=== PATIENT | male | born 1975 | race Two or more races ===

== ENCOUNTER 2017-06-10 14:56 | Inpatient (IN) | payer MEDICAID ==
[~2017-06-10] VITALS: Ht 185.4 cm; Wt 133.8 kg
[2017-06-10] MEDS ORDERED: NKM (15:06)
[2017-06-10] MEDS ORDERED: Acetaminophen 500mg (ES) tab ORAL ONE (15:30)
[2017-06-10] MEDS ORDERED: Ketorolac 30mg Inj IV ONE (15:30)
--- NOTE | 2017-06-10 15:33 | Emergency Room Report ---
History of Present Illness General Chief Complaint: Dyspnea/Respdistress Source: Patient Present Illness HPI Patient is a homeless man who presents emergency department today complaining of chest discomfort. Patient states that he develop acute onset of left-sided chest pain worse with deep inspiration since yesterday. Patient was noted to have a fever at triage. Patient states that he was also recently treated for cellulitis of his lower extremities but things do not seem to be improving. He complains of dependent edema of his legs. He sleeps in his car. He denies any other complaints. Denies any abdominal pain nausea vomiting diarrhea or chills. Symptoms noted to be severe.No other modifying factors. No other associated signs and symptoms. No other complaints were noted. Allergies: Coded Allergies: No Known Allergies (Unverified , 06/10/17) Patient History Past Medical History: other - depression Past Surgical History: none Pertinent Family History: none Social History: Denies: alcohol use, drug use, smoking Reviewed Nursing Documentation: PMH: Agreed, PSxH: Agreed Nursing Documentation-PMH History Of Psychiatric Problem: Yes - depression Review of Systems All Other Systems: negative except mentioned in HPI Physical Exam Vital Signs Date Time Temp Pulse Resp B/P Pulse Ox O2 Delivery O2 Flow Rate FiO2 06/10/17 15:00 100.9 136 20 147/90 94 Room Air Sp02 EP Interpretation: reviewed, abnormal - interpreted to be low by me General Appearance: alert, moderate distress Head: atraumatic Eyes: bilateral eye normal inspection ENT: normal ENT inspection, hearing grossly normal, normal voice Neck: normal inspection, full range of motion, supple, no bony tend Respiratory: no retraction, decreased breath sounds, crackles - left-sided Cardiovascular #1: regular rate, rhythm, no edema, other - tender left side palpation Gastrointestinal: normal inspection, normal bowel sounds, non tender, soft, no guarding, no hernia Genitourinary: no CVA tenderness Musculoskeletal: normal inspection, back normal, normal range of motion Neurologic: normal inspection, alert, responsive, speech normal Psychiatric: normal inspection, judgement/insight normal, depressed affect, anxious Skin: normal inspection, normal color, no rash Procedures Critical Care Time Critical Care Time Patient had a critical medical condition which untreated could potentially result in life or limb threatening injury. Total critical care time excluding procedures was approximately 45 minutes. Medical Decision Making Diagnostic Impression: Primary Impression: Pneumonia Additional Impressions: Hypoxia Tachycardia ER Course Patient presents emergency department today complaining shortness of breath and tachycardia. Differential diagnoses include acute pneumonia, acute pulmonary embolism, acute electrolyte abnormality, asthma just name a few. Given the severity of the patient's presentation I felt this is a highly complex patient. This patient required extensive workup. Patient laboratory workup shows an elevated white blood cell count. Patient's chest x-ray shows evidence of infiltrate consistent with pneumonia. Patient's CT chest not showing evidence of pulmonary embolism. However given patient's presentation for the patient require admission to the hospital. Case was discussed with admitting physician. Patient will be admitted to telemetry because patient's tachycardic. Labs Test 06/10/17 15:34 06/10/17 15:45 White Blood Count 13.1 K/UL (4.8-10.8) Red Blood Count 5.08 M/UL (4.70-6.10) Hemoglobin 15.4 G/DL (14.2-18.0) Hematocrit 44.3 % (42.0-52.0) Mean Corpuscular Volume 87 FL (80-99) Mean Corpuscular Hemoglobin 30.2 PG (27.0-31.0) Mean Corpuscular Hemoglobin Concent 34.7 G/DL (32.0-36.0) Red Cell Distribution Width 12.5 % (11.6-14.8) Platelet Count 319 K/UL (150-450) Mean Platelet Volume 7.1 FL (6.5-10.1) Neutrophils (%) (Auto) 75.3 % (45.0-75.0) Lymphocytes (%) (Auto) 15.4 % (20.0-45.0) Monocytes (%) (Auto) 7.4 % (1.0-10.0) Eosinophils (%) (Auto) 0.0 % (0.0-3.0) Basophils (%) (Auto) 1.9 % (0.0-2.0) Prothrombin Time 10.7 SEC (9.30-11.50) Prothromb Time International Ratio 1.0 (0.9-1.1) Activated Partial Thromboplast Time 28 SEC (23-33) Sodium Level 139 mEQ/L (135-145) Potassium Level 3.8 mEQ/L (3.4-4.9) Chloride Level 99 mEQ/L (98-107) Carbon Dioxide Level 25 mEQ/L (20-30) Anion Gap 15 (5-15) Blood Urea Nitrogen 9 mg/dL (7-23) Creatinine 1.0 mg/dL (0.7-1.2) Estimat Glomerular Filtration Rate > 60 mL/min (>60) Glucose Level 120 mg/dL (74-106) Calcium Level 9.8 mg/dL (8.6-10.2) Total Bilirubin 0.6 mg/dL (0.0-1.2) Aspartate Amino Transf (AST/SGOT) 17 U/L (5-40) Alanine Aminotransferase (ALT/SGPT) 20 U/L (3-41) Alkaline Phosphatase 87 U/L (40-129) Total Creatine Kinase 66 U/L (38-174) Creatine Kinase MB < 1.5 ng/mL (< 6.7) Creatine Kinase MB Relative Index 2.2 Troponin I < 0.30 ng/mL (<=0.30) Pro-B-Type Natriuretic Peptide 15 pg/mL (0-125) Total Protein 8.3 g/dL (6.6-8.7) Albumin 4.4 g/dL (3.5-5.2) Globulin 3.9 g/dL Albumin/Globulin Ratio 1.1 (1.0-2.7) Lipase 24 U/L (< 60) Urine Color Yellow Urine Appearance Clear Urine pH 8 (4.5-8.0) Urine Specific [place] 1.010 (1.005-1.035) Urine Protein 2+ (NEGATIVE) Urine Glucose (UA) Negative (NEGATIVE) Urine Ketones 1+ (NEGATIVE) Urine Occult Blood 1+ (NEGATIVE) Urine Nitrite Negative (NEGATIVE) Urine Bilirubin Negative (NEGATIVE) Urine Urobilinogen 4 MG/DL (0.0-1.0) Urine Leukocyte Esterase 1+ (NEGATIVE) Urine RBC 2-4 /HPF (0 - 0) Urine WBC 0-2 /HPF (0 - 0) Urine Squamous Epithelial Cells Occasional /LPF Urine Bacteria None /HPF (NONE) EKG Diagnostic Results Rate: tachycardiac Rhythm: NSR ST Segments: no acute changes Rhythm Strip Diag. Results EP Interpretation: yes Rate: 120s Rhythm: NSR, no PVC's, no ectopy Chest X-Ray Diagnostic Results Chest X-Ray Diagnostic Results : Chest X-Ray Ordered: Yes # of Views/Limited/Complete: 1 View Indication: Chest Pain EP Interpretation: Yes Interpretation: no effusion, no pneumothorax, other - left side infiltrate, Impression: Other Interpreting ER Provider: Electronically signed by Nikolay Beltran MD Last Vital Signs Date Time Temp Pulse Resp B/P Pulse Ox O2 Delivery O2 Flow Rate FiO2 06/10/17 15:00 100.9 136 20 147/90 94 Room Air Status: improved Disposition: ADMITTED INPATIENT Condition: Serious NIKOLAY BELTRAN M.D. Jun 10, 2017 15:33
[2017-06-10] MEDS ORDERED: Azithromycin 500mg Inj IV ONE (16:00)
[2017-06-10] MEDS ORDERED: Azithromycin 500 MG in D5W 275 ML IVPB ONE (16:00)
[2017-06-10] MEDS ORDERED: cefTRIAXone 1 GM in NS 55 ML IVPB ONE (16:00)
[2017-06-10 16:04] LABS: APPEARANCE,URINE CLEAR; KETONES,URINE 1+ (NEGATIVE); LEUKOCYTE ESTERASE ,URINE 1+ (NEGATIVE); NITRITE,URINE NEGATIVE (NEGATIVE); PH,URINE 8 (4.5-8.0); PROTEIN,URINE 2+ (NEGATIVE); UROBILINOGEN,URINE 4 MG/DL (0.0-1.0)
[2017-06-10 16:04] LABS: BASOPHILS % (AUTO) 1.9 % (0.0-2.0); LYMPHOCYTES % (AUTO) 15.4 % (20.0-45.0); MEAN CORPUSCULAR HEMOGLOBIN 30.2 PG (27.0-31.0); MEAN CORPUSCULAR HGB CONC 34.7 G/DL (32.0-36.0); MEAN CORPUSCULAR VOLUME 87 FL (80-99); MEAN PLATELET VOLUME 7.1 FL (6.5-10.1); MONOCYTES % (AUTO) 7.4 % (1.0-10.0); NEUTROPHILS % (AUTO) 75.3 % (45.0-75.0); PLATELET COUNT 319 K/UL (150-450); RED BLOOD COUNT 5.08 M/UL (4.70-6.10); RED CELL DISTRIBUTION WIDTH 12.5 % (11.6-14.8); WHITE BLOOD COUNT 13.1 K/UL (4.8-10.8)
--- NOTE | 2017-06-10 16:10 | Diagnostic Imaging Report ---
Indication: COUGH Technique: One view of the chest Comparison: none Findings: Body habitus limits evaluation. Inspiration is suboptimal. There are are bilateral basilar atelectatic changes, left greater than right. There may be some consolidation at the left lung base. The heart borders are obscured by the diaphragms; suspect at least mild cardiomegaly. The upper lung bo are clear. The pleural spaces are probably clear. Impression: Hypoventilatory exam with bilateral basilar atelectatic changes Possible left basilar consolidation Suspect cardiomegaly
[2017-06-10 16:11] LABS: SQUAMOUS EPITHELIAL CELL,UR OCCASIONAL /LPF (NONE/OCC); WBC,URINE 0-2 /HPF (0 - 0)
[2017-06-10 16:16] LABS: PROTHROMBIN TIME 10.7 SEC (9.30-11.50)
[2017-06-10 16:21] LABS: ALANINE AMINOTRANSFERASE 20 U/L (3-41); ALBUMIN/GLOBULIN RATIO 1.1 (1.0-2.7); ASPARTATE AMINO TRANSFERASE 17 U/L (5-40); CALCIUM 9.8 mg/dL (8.6-10.2); CARBON DIOXIDE 25 mEQ/L (20-30); GLOMERULAR FILTRATION RATE > 60 mL/min (>60); HEMOLYSIS 17; LIPASE 24 U/L (< 60); TOTAL PROTEIN 8.3 g/dL (6.6-8.7); TROPONIN I < 0.30 ng/mL (<=0.30)
[2017-06-10 16:22] LABS: ANION GAP 15 (5-15); CHLORIDE 99 mEQ/L (98-107); POTASSIUM 3.8 mEQ/L (3.4-4.9); SODIUM 139 mEQ/L (135-145)
[2017-06-10 16:32] LABS: CKMB < 1.5 ng/mL (< 6.7)
[2017-06-10] MEDS ORDERED: LORazepam Inj 2mg/ml 1ml IV ONE (16:45)
[2017-06-10 17:10] VITALS: BP 116/92
[2017-06-10 18:47] VITALS: BP 127/85
[2017-06-10] MEDS ORDERED: LORazepam Inj 2mg/ml 1ml IV PRN (20:15)
[2017-06-10] MEDS ORDERED: DuoNeb 0.5-3(2.5)mg/3ml neb HHN PRN (20:15)
[2017-06-10] MEDS ORDERED: Morphine Sulfate 4mg/ml Inj IVP PRN (20:15)
[2017-06-10] MEDS ORDERED: Promethazine/Codeine 5ml UD ORAL PRN (20:15)
[2017-06-10] MEDS ORDERED: Miralax 17gm pkt ORAL PRN (20:15)
[2017-06-10] MEDS ORDERED: HYDROXYZINE HCL25 M1 PO (21:19)
[2017-06-10 21:40] VITALS: BP 125/74
[2017-06-10] MEDS: Heparin 5000 units/ml inj SUBQ SCH (21:50)
[2017-06-10] MEDS: Cefepime HCl 2 GM in D5W 110 ML IV SCH (21:51)
--- NOTE | 2017-06-10 22:31 | History and Physical ---
History of Present Illness General Date patient seen: Jun 10, 2017 Reason for Hospitalization: Dyspnea/Respdistress Present Illness HPI 41 year old homeless man who presents emergency department today complaining of chest discomfort with acute onset of left-sided chest pain worse with deep inspiration since yesterday. Patient was noted to have a fever at triage. Patient states that he was also recently treated for cellulitis of his lower extremities but things do not seem to be improving. He had CT angio in ER showing infiltrate. He was tachycardic, therefore he was admitted to telemetry. Allergies: Coded Allergies: No Known Allergies (Unverified , 06/10/17) Medication History Scheduled No Known Medications* (NKM - No Known Medications*), 0 ., (Reported) Miscellaneous Medications Hydroxyzine Hcl (Hydroxyzine Hcl), 25 MG PO, (Reported) Patient History Healthcare decision maker Resuscitation status Advanced Directive on File Past Medical/Surgical History Past Medical/Surgical History: (1) Homelessness Review of Systems All Other Systems: negative except mentioned in HPI Physical Exam General Appearance: WD/WN, no apparent distress Lines, tubes and drains: peripheral HEENT: normocephalic, atraumatic Neck: non-tender, normal alignment Respiratory/Chest: chest wall non-tender, lungs clear Breasts: no masses Cardiovascular/Chest: normal peripheral pulses, normal rate Abdomen: normal bowel sounds, non tender, soft Genitourinary/Rectal: normal genital exam, normal rectal exam Extremities: normal range of motion, non-tender Skin Exam: normal pigmentation 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 Last 24 Hour Vital Signs Date Time Temp Pulse Resp B/P Pulse Ox O2 Delivery O2 Flow Rate FiO2 06/10/17 21:40 99.5 104 20 125/74 95 Room Air 06/10/17 18:47 98.8 104 22 127/85 96 Room Air 06/10/17 17:10 98.9 105 21 116/92 96 Room Air 06/10/17 15:10 120 23 06/10/17 15:00 100.9 136 20 147/90 94 Room Air Laboratory Tests Test 06/10/17 15:34 06/10/17 15:45 White Blood Count 13.1 K/UL (4.8-10.8) H Red Blood Count 5.08 M/UL (4.70-6.10) Hemoglobin 15.4 G/DL (14.2-18.0) Hematocrit 44.3 % (42.0-52.0) Mean Corpuscular Volume 87 FL (80-99) Mean Corpuscular Hemoglobin 30.2 PG (27.0-31.0) Mean Corpuscular Hemoglobin Concent 34.7 G/DL (32.0-36.0) Red Cell Distribution Width 12.5 % (11.6-14.8) Platelet Count 319 K/UL (150-450) Mean Platelet Volume 7.1 FL (6.5-10.1) Neutrophils (%) (Auto) 75.3 % (45.0-75.0) H Lymphocytes (%) (Auto) 15.4 % (20.0-45.0) L Monocytes (%) (Auto) 7.4 % (1.0-10.0) Eosinophils (%) (Auto) 0.0 % (0.0-3.0) Basophils (%) (Auto) 1.9 % (0.0-2.0) Prothrombin Time 10.7 SEC (9.30-11.50) Prothromb Time International Ratio 1.0 (0.9-1.1) Activated Partial Thromboplast Time 28 SEC (23-33) Sodium Level 139 mEQ/L (135-145) Potassium Level 3.8 mEQ/L (3.4-4.9) Chloride Level 99 mEQ/L (98-107) Carbon Dioxide Level 25 mEQ/L (20-30) Anion Gap 15 (5-15) Blood Urea Nitrogen 9 mg/dL (7-23) Creatinine 1.0 mg/dL (0.7-1.2) Estimat Glomerular Filtration Rate > 60 mL/min (>60) Glucose Level 120 mg/dL (74-106) H Calcium Level 9.8 mg/dL (8.6-10.2) Total Bilirubin 0.6 mg/dL (0.0-1.2) Aspartate Amino Transf (AST/SGOT) 17 U/L (5-40) Alanine Aminotransferase (ALT/SGPT) 20 U/L (3-41) Alkaline Phosphatase 87 U/L (40-129) Total Creatine Kinase 66 U/L (38-174) Creatine Kinase MB < 1.5 ng/mL (< 6.7) Creatine Kinase MB Relative Index 2.2 Troponin I < 0.30 ng/mL (<=0.30) Pro-B-Type Natriuretic Peptide 15 pg/mL (0-125) Total Protein 8.3 g/dL (6.6-8.7) Albumin 4.4 g/dL (3.5-5.2) Globulin 3.9 g/dL Albumin/Globulin Ratio 1.1 (1.0-2.7) Lipase 24 U/L (< 60) Urine Color Yellow Urine Appearance Clear Urine pH 8 (4.5-8.0) Urine Specific [place] 1.010 (1.005-1.035) Urine Protein 2+ (NEGATIVE) H Urine Glucose (UA) Negative (NEGATIVE) Urine Ketones 1+ (NEGATIVE) H Urine Occult Blood 1+ (NEGATIVE) H Urine Nitrite Negative (NEGATIVE) Urine Bilirubin Negative (NEGATIVE) Urine Urobilinogen 4 MG/DL (0.0-1.0) H Urine Leukocyte Esterase 1+ (NEGATIVE) H Urine RBC 2-4 /HPF (0 - 0) H Urine WBC 0-2 /HPF (0 - 0) Urine Squamous Epithelial Cells Occasional /LPF Urine Bacteria None /HPF (NONE) Height (Feet): 6 Height (Inches): 1.00 Weight (Pounds): 300 Medications Current Medications Medications (Trade) Dose Ordered Sig/Driss Route PRN Reason Start Time Stop Time Status Last Admin Dose Admin Acetaminophen (Tylenol) 650 mg Q4H PRN ORAL FEVER 06/10/17 20:15 07/10/17 20:14 Albuterol/ Ipratropium 3 ml 3 ml Q4H PRN HHN Shortness of Breath 06/10/17 20:15 06/15/17 20:14 Cefepime HCl 2 gm/ Dextrose 110 ml @ 220 mls/hr Q12H IV 06/10/17 22:00 06/17/17 21:59 06/10/17 21:51 Dextrose (Dextrose 50%) STAT PRN IV Hypoglycemia 06/10/17 19:45 07/10/17 19:44 Dextrose (Dextrose 50%) STAT PRN IV Hypoglycemia 06/10/17 20:15 07/10/17 20:14 Heparin Sodium (Porcine) (Heparin 5000 units/ml) 5,000 units EVERY 12 HOURS SUBQ 06/10/17 21:00 07/10/17 20:59 06/10/17 21:50 Lorazepam (Ativan 2mg/ml 1ml) 2 mg Q2H PRN IV For Anxiety 06/10/17 20:15 06/17/17 20:14 Morphine Sulfate (Morphine Sulfate) 4 mg Q4H PRN IVP Severe Pain (Pain Scale 7-10) 06/10/17 20:15 06/17/17 20:14 Ondansetron HCl (Zofran) 4 mg Q6H PRN IVP Nausea & Vomiting 06/10/17 20:15 07/10/17 20:14 Polyethylene Glycol (Miralax) 17 gm DAILYPRN PRN ORAL Constipation 06/10/17 20:15 07/10/17 20:14 Promethazine HCl/ Codeine 5 ml 5 ml Q4H PRN ORAL For Cough 06/10/17 20:15 07/10/17 20:14 Sodium Chloride (Sodium Chloride 1000ml bag) 1,000 ml @ 75 mls/hr [id number] IV 06/10/17 20:11 07/10/17 20:10 06/10/17 21:48 Vancomycin HCl/ Dextrose (Vancomycin 1.5gm/D5W 250ml) 250 ml @ 166.636 mls/hr Q8H IVPB 06/10/17 23:00 06/15/17 22:59 Assessment/Plan Problem List: (1) Pneumonia ICD Codes: J18.9 - Pneumonia, unspecified organism SNOMED: 368331842, 54036676 (2) Hypoxia ICD Codes: R09.02 - Hypoxemia SNOMED: 636282092, 17670293 (3) Tachycardia ICD Codes: R00.0 - Tachycardia, unspecified SNOMED: 5724440 (4) Homelessness ICD Codes: Z59.0 - Homelessness SNOMED: 83125029 Assessment/Plan IV antibiotics IV fluids monitor heart check sputum KWASI IBARRA Jun 10, 2017 22:31
[2017-06-10] MEDS: Vancomycin 1.5gm/D5W 250ml 250 ML IVPB SCH (23:35)
[2017-06-11] VITALS: BP 132/77
[2017-06-11 04:00] VITALS: BP 131/81
[2017-06-11 07:04] LABS: EOSINOPHILS % (AUTO) 1.3 % (0.0-3.0); LYMPHOCYTES % (AUTO) 22.4 % (20.0-45.0); MEAN CORPUSCULAR HEMOGLOBIN 29.9 PG (27.0-31.0); MEAN CORPUSCULAR HGB CONC 33.2 G/DL (32.0-36.0); MEAN CORPUSCULAR VOLUME 90 FL (80-99); MEAN PLATELET VOLUME 7.1 FL (6.5-10.1); MONOCYTES % (AUTO) 15.3 % (1.0-10.0); PLATELET COUNT 296 K/UL (150-450); RED BLOOD COUNT 4.41 M/UL (4.70-6.10); RED CELL DISTRIBUTION WIDTH 12.4 % (11.6-14.8); WHITE BLOOD COUNT 9.4 K/UL (4.8-10.8)
[2017-06-11] MEDS: Vancomycin 1.5gm/D5W 250ml 250 ML IVPB SCH ×3 (07:04→23:04)
[2017-06-11 07:35] LABS: ANION GAP 13 (5-15); CALCIUM 8.9 mg/dL (8.6-10.2); CARBON DIOXIDE 26 mEQ/L (20-30); CHLORIDE 99 mEQ/L (98-107); CREATININE 0.9 mg/dL (0.7-1.2); GLOMERULAR FILTRATION RATE > 60 mL/min (>60); HEMOLYSIS 2; PHOSPHORUS 3.5 mg/dL (2.5-4.8); POTASSIUM 3.2 mEQ/L (3.4-4.9); SODIUM 138 mEQ/L (135-145)
[2017-06-11 08:00] VITALS: BP 115/66
--- NOTE | 2017-06-11 09:11 | Diagnostic Imaging Report ---
Indication: Chest pain Technique: Continuous helical transaxial imaging of the chest was obtained from the thoracic inlet to the upper abdomen during rapid intravenous contrast administration. Arterial phase of enhancement obtained. Coronal 2-D reformats were also obtained and maximum intensity projection images in multiple planes. Study obtained in a Siemens sensation [address] Total Dose length Product (DLP): [address] Dose Index Volume (CTDIvol): 12.6, 63, 45 mGy Comparison: None Findings: Pulmonary is not well opacified on this examination. There is artifact related to body habitus. The main pulmonary artery and right and left pulmonary artery trunks are normal. Beyond this, there is no obvious filling defect identified but evaluation is significantly limited and essentially nondiagnostic. The aorta is normal in appearance without evidence of aneurysm or dissection. The heart is unremarkable. There is a trace left pleural effusion. There is ill-defined consolidative opacity at the left lung base. Minimal posterior basilar atelectasis noted in addition to this. A small part of the upper abdomen is seen on this exam and no gross abnormality seen. Impression: No evidence of central pulmonary embolus. Evaluation is limited with regard to pulmonary artery branches beyond the main right and left trunks. Normal appearance of the aorta. Left basilar pneumonia suspected. Dr. Norton has communicated the preliminary results to the Emergency Department. There are no significant discrepancies. The CT scanner at [facility] is accredited by the [employer] and the scans are performed using dose optimization techniques as appropriate to a performed exam including Automatic Exposure control.
[2017-06-11] MEDS: Cefepime HCl 2 GM in D5W 110 ML IV SCH (09:14)
[2017-06-11] MEDS: Heparin 5000 units/ml inj SUBQ SCH ×2 (09:18→20:41)
[2017-06-11 12:00] VITALS: BP 120/68
--- NOTE | 2017-06-11 13:45 | Pulmonology Progress Note ---
Assessment/Plan Problems: (1) Pneumonia (2) Hypoxia (3) Tachycardia (4) Homelessness Assessment/Plan iv abx heart rate better titrate fio2 check sputum chest pt med/surg Subjective ROS Limited/Unobtainable: No Constitutional: Reports: no symptoms HEENT: Repors: no symptoms Respiratory: Reports: no symptoms Allergies: Coded Allergies: No Known Allergies (Unverified , 06/10/17) Objective Last 24 Hour Vital Signs Date Time Temp Pulse Resp B/P Pulse Ox O2 Delivery O2 Flow Rate FiO2 06/11/17 12:00 98.5 75 18 120/68 93 Room Air 06/11/17 08:00 98.6 83 18 115/66 94 Room Air 06/11/17 04:00 82 06/11/17 04:00 98.4 87 18 131/81 95 Room Air 06/11/17 01:49 103 18 128/82 95 Room Air 06/11/17 00:00 95 06/11/17 00:00 98.8 104 18 132/77 96 Room Air 06/10/17 21:40 99.5 104 20 125/74 95 Room Air 06/10/17 21:40 103 06/10/17 18:47 98.8 104 22 127/85 96 Room Air 06/10/17 17:10 98.9 105 21 116/92 96 Room Air 06/10/17 15:10 120 23 06/10/17 15:00 100.9 136 20 147/90 94 Room Air Intake and Output 06/10/17 06/11/17 19:00 07:00 Intake Total 893.272 ml Output Total 3 ml Balance 890.272 ml Intake Oral 0 ml IV Total 893.272 ml Output Urine Total 3 ml General Appearance: WD/WN HEENT: normocephalic, atraumatic Respiratory/Chest: chest wall non-tender, normal breath sounds Cardiovascular: normal peripheral pulses, normal rate Abdomen: normal bowel sounds, soft, non tender Genitourinary: normal external genitalia Extremities: no clubbing Skin: no rash Microbiology Date/Time Source Procedure Growth Status 06/10/17 22:00 Wound Gram Stain - Final Resulted 06/10/17 22:00 Wound Wound Culture Pending Resulted Laboratory Tests 06/10/17 15:34: White Blood Count 13.1H, Red Blood Count 5.08, Hemoglobin 15.4, Hematocrit 44.3 , Mean Corpuscular Volume 87, Mean Corpuscular Hemoglobin 30.2, Mean Corpuscular Hemoglobin Concent 34.7, Red Cell Distribution Width 12.5, Platelet Count 319, Mean Platelet Volume 7.1, Neutrophils (%) (Auto) 75.3H, Lymphocytes ( %) (Auto) 15.4L, Monocytes (%) (Auto) 7.4, Eosinophils (%) (Auto) 0.0, Basophils (%) (Auto) 1.9, Prothrombin Time 10.7, Prothromb Time International Ratio 1.0, Activated Partial Thromboplast Time 28, Sodium Level 139, Potassium Level 3.8, Chloride Level 99, Carbon Dioxide Level 25, Anion Gap 15, Blood Urea Nitrogen 9, Creatinine 1.0, Estimat Glomerular Filtration Rate > 60, Glucose Level 120H, Calcium Level 9.8, Total Bilirubin 0.6, Aspartate Amino Transf (AST/ SGOT) 17, Alanine Aminotransferase (ALT/SGPT) 20, Alkaline Phosphatase 87, Total Creatine Kinase 66, Creatine Kinase MB < 1.5, Creatine Kinase MB Relative Index 2.2, Troponin I < 0.30, Pro-B-Type Natriuretic Peptide 15, Total Protein 8.3, Albumin 4.4, Globulin 3.9, Albumin/Globulin Ratio 1.1, Lipase 24 06/10/17 15:45: Urine Color Yellow, Urine Appearance Clear, Urine pH 8, Urine Specific [place] 1.010, Urine Protein 2+H, Urine Glucose (UA) Negative, Urine Ketones 1+H, Urine Occult Blood 1+H, Urine Nitrite Negative, Urine Bilirubin Negative, Urine Urobilinogen 4H, Urine Leukocyte Esterase 1+H, Urine RBC 2-4H, Urine WBC 0-2, Urine Squamous Epithelial Cells Occasional, Urine Bacteria None 06/11/17 04:35: White Blood Count 9.4, Red Blood Count 4.41L, Hemoglobin 13.2L, Hematocrit 39.7L , Mean Corpuscular Volume 90, Mean Corpuscular Hemoglobin 29.9, Mean Corpuscular Hemoglobin Concent 33.2, Red Cell Distribution Width 12.4, Platelet Count 296, Mean Platelet Volume 7.1, Neutrophils (%) (Auto) 60.0, Lymphocytes (% ) (Auto) 22.4, Monocytes (%) (Auto) 15.3H, Eosinophils (%) (Auto) 1.3, Basophils (%) (Auto) 1.0, Sodium Level 138, Potassium Level 3.2L, Chloride Level 99, Carbon Dioxide Level 26, Anion Gap 13, Blood Urea Nitrogen 10, Creatinine 0.9, Estimat Glomerular Filtration Rate > 60, Glucose Level 87, Calcium Level 8.9, Albumin 3.6, Phosphorus Level 3.5 Current Medications Medications (Trade) Dose Ordered Sig/Driss Route PRN Reason Start Time Stop Time Status Last Admin Dose Admin Acetaminophen (Tylenol) 650 mg Q4H PRN ORAL FEVER 06/10/17 20:15 07/10/17 20:14 Albuterol/ Ipratropium 3 ml 3 ml Q4H PRN HHN Shortness of Breath 06/10/17 20:15 06/15/17 20:14 Cefepime HCl 2 gm/ Dextrose 110 ml @ 220 mls/hr Q12H IV 06/10/17 22:00 06/17/17 21:59 06/11/17 09:14 Dextrose (Dextrose 50%) STAT PRN IV Hypoglycemia 06/10/17 19:45 07/10/17 19:44 Dextrose (Dextrose 50%) STAT PRN IV Hypoglycemia 06/10/17 20:15 07/10/17 20:14 Heparin Sodium (Porcine) (Heparin 5000 units/ml) 5,000 units EVERY 12 HOURS SUBQ 06/10/17 21:00 07/10/17 20:59 06/11/17 09:18 Lorazepam (Ativan 2mg/ml 1ml) 2 mg Q2H PRN IV For Anxiety 06/10/17 20:15 06/17/17 20:14 06/11/17 10:28 Morphine Sulfate (Morphine Sulfate) 4 mg Q4H PRN IVP Severe Pain (Pain Scale 7-10) 06/10/17 20:15 06/17/17 20:14 Ondansetron HCl (Zofran) 4 mg Q6H PRN IVP Nausea & Vomiting 06/10/17 20:15 07/10/17 20:14 Polyethylene Glycol (Miralax) 17 gm DAILYPRN PRN ORAL Constipation 06/10/17 20:15 07/10/17 20:14 Promethazine HCl/ Codeine 5 ml 5 ml Q4H PRN ORAL For Cough 06/10/17 20:15 07/10/17 20:14 Sodium Chloride (Sodium Chloride 1000ml bag) 1,000 ml @ 75 mls/hr [id number] IV 06/10/17 20:11 07/10/17 20:10 06/11/17 09:14 Vancomycin HCl/ Dextrose (Vancomycin 1.5gm/D5W 250ml) 250 ml @ 166.636 mls/hr Q8H IVPB 06/10/17 23:00 06/15/17 22:59 06/11/17 07:04 KWASI IBARRA Jun 11, 2017 13:45
[2017-06-11 16:00] VITALS: BP 118/74
[2017-06-11 20:00] VITALS: BP 114/72
[2017-06-11] MEDS ORDERED: Miralax 17gm pkt ORAL PRN (20:15)
[2017-06-11] MEDS ORDERED: Promethazine/Codeine 5ml UD ORAL PRN (20:15)
--- NOTE | 2017-06-11 20:19 | Infectious Diseases Prog Note ---
Infectious Disease Consult Infectious Disease Consult Infectious Disease Consult INFECTIOUS DISEASE CONSULTATION DATE OF CONSULTATION: CONSULTING PHYSICIAN: Kendrick Gonzalez M.D., [facility], [facility] Covering for Dr. Bowling REFERRING PHYSICIAN: Dr Dominguez REASON FOR CONSULTATION: LLL pneumonia HISTORY OF PRESENT ILLNESS: 41 y/o obese male living in a car with his mother, recent admission to [place] for BLE cellulitis, now admitted with acute L pleuritic chest pain found to have LLL non cavitary pneumonia w/o parapneumonic effusion. denies any cough productive of sputum, denies f/c, n/v, hemoptysis, denies sick contacts, denies any prior h/o TB exposure, and denies h/o DM. denies diarrhea , denies urinary symptoms. does not smoke, does use recreational marijuana, and he endorses a one-time injection of crystal meth about one week ago, c/b pain and palpable cord to L arm. also describes ble intermittent edema and has hyperpigmented skin c/w venous stasis, and recently admitted a [place] >4 weeks ago for "ble cellulitis" for which he had some improvement with rest/elevation and short course po kelfex. 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 PAST MEDICAL HISTORY: BLE venous stasis, lower extremity cellulitis, h/o IVDU Past Surgical History: none ALLERGIES: No known drug allergies. ANTIBIOTICS: Home and hospitalized medications reviewed. keflex for approx 10 days >4 weeks ago. SOCIAL HISTORY: see above. FAMILY HISTORY: Noncontributory. DM2. REVIEW OF SYSTEMS: 11 point ROS negative except for that mentioned in HPI above. PHYSICAL EXAM: VITAL SIGNS: GEN: awake, alert, non toxic appearing HEENT: Mild pale conjunctiva. oral mucosa dry, phaynx w/o exudate or effusion. No icterus. Head normocephalic, neck supple. NECK: No cervical LAD CHEST: Clear to auscultation bilaterally except faint crackles L base HEART: S1 and S2, no murmurs, no rubs. ABDOMEN: soft, non tender, non distended, normoactive bowel sounds. EXTREMITIES: No cyanosis, no clubbing, trace BLE edema. no erythema to BLE, but multiple eschars in different stages of healing. no flucutance. no warmth. nvi. L forearm medially with palpable painful cord with faint erythema. NEUROLOGIC: Awake, alert, no focal neurologic motor deficits. : deferred LYMPH: no LAD RECTAL: deferred LABORATORY AND DIAGNOSTIC DATA: reviewed. leukocytosis 13 on admission resolved. leg superficial swab cx pending. no blood cx pending. RADIOLOGY: CTA with L basilar infiltrate. no effusion, no LAD, no cavity. ASSESSMENT AND PLAN ASSESSMENT: 41 y/o homeless male with: 1) LLL pneumonia--homeless, living in car with mother, but no TB exposure risk. acute presentation. responding to current therapy. 2) leukocytosis--resolved 3) L arm thrombophlebitis 4) BLE venous stasis 5) BLE eschars, small, w/o surrounding cellulitis recent IVDU PLAN: --d/c cefepime --start levofloxacin 750mg PO q24hr for 5 day course --continue IV vancomycin for LUE thrombophlebitis --L arm warm compresses --mupirocin topical to lesions on ble legs --rest/elevation BLE --HIV and viral hep screening --urine legionella Ag --monitor CBC --monitor temp curve --f/u cx Thank you for this consultation. Will continue to follow. Covering for Dr. Bowling, please call me with questions, Kendrick Gonzalez M.D. Jun 11, 2017 20:19
[2017-06-11] MEDS ORDERED: PARoxetine 10mg tab ORAL SCH (21:00)
[2017-06-11] MEDS: LORazepam Inj 2mg/ml 1ml IV PRN (21:56)
[2017-06-11] MEDS: PARoxetine 10mg tab ORAL SCH (21:57)
[2017-06-11] MEDS ORDERED: Cefepime HCl 2 GM in D5W 110 ML IV SCH (22:00)
[2017-06-11] MEDS ORDERED: Vancomycin 1.5gm/D5W 250ml 250 ML IVPB SCH (23:00)
[2017-06-12] VITALS: BP 119/79
--- NOTE | 2017-06-12 03:45 | Consultation ---
DATE OF CONSULTATION: 06/11/2017 HISTORY OF PRESENT ILLNESS: The patient is a 41-year-old male, who is living with his mother. The mother is at bedside. The patient is suffering from depression. Also has multiple medical problems including obesity and has lower extremity cellulitis. The patient is complaining of chest pain and dyspnea; therefore, he was admitted to the [facility] for further evaluation and treatment. The patient recently has been started on Remeron and apparently Remeron has not been helping him. The patient is presenting with depressed mood, anhedonia, worthlessness, hopelessness, anxiety, insomnia, increased appetite, and decreased energy, this is also in the context of unemployment and feeling lonely. PAST PSYCHIATRIC HISTORY: He said he has never been in the psychiatric hospital. No suicide attempt. He has only been on Remeron. Beside Remeron, he has not been on anything else. PAST MEDICAL HISTORY: Significant for pneumonia in the past. ALLERGIES: No known drug allergies. SUBSTANCE ABUSE HISTORY: He denies any history of illicit drug use or alcohol. MEDICATIONS: He is taking for insomnia. MENTAL STATUS EXAMINATION: The patient is alert and oriented x3. He is overweight. He is disheveled and unkempt. Mood is depressed. Affect is constricted. Congruent with mood. Thought process is concrete. Thought content, there is no suicidal or homicidal ideation. Insight and judgment is fair. ASSESSMENT: [place] I Major depressive disorder, recurrent, moderate. [place] II Deferred. [place] III As above. [place] IV Moderate. [place] V 25. PLAN: 1. The patient will be started on Paxil 10 mg at night. 2. We will start the patient on Wellbutrin XL 150 mg in the morning. 3. We will continue follow and readjust the medications. Tari Ryan M.D. DR: Nupur JOB#: [id number] CC:
[2017-06-12 04:00] VITALS: BP 117/67
[2017-06-12] MEDS: Vancomycin 1.5gm/D5W 250ml 250 ML IVPB SCH ×3 (06:10→23:03)
--- NOTE | 2017-06-12 07:44 | Pulmonology Progress Note ---
Assessment/Plan Assessment/Plan ASSESSMENT LLL pneumonia LUE thrombophlebitis Venous stasis BLE electrolyte abnormalities ( hypo K, hypo Mg) tachycardia major depressive disorder PLAN OF CARE MS floor IVF O2 HHN prn antitussive prn abx ID follwos sputum cx if able CXR with left base consolidation CTA no PE, L base PNA warm compresses to LUE as ordered elevate LUE pain management HIV test negative hepatitis panel negative DVT prophylaxis psych seen And evaluated started on Paxil and Wellbutrin tachycardia was likely due to fever, resolved when fever resolved K stable after replacement, replace Mg, check lytes in am case discussed and evaluated by supervising physician Subjective Allergies: Coded Allergies: No Known Allergies (Unverified , 06/10/17) Subjective leukocytosis resolved, afebrile, weak, cough, intermittent dry, no hemoptysis, no wheezing K stable after replacement, Mg-1.6 Objective Last 24 Hour Vital Signs Date Time Temp Pulse Resp B/P Pulse Ox O2 Delivery O2 Flow Rate FiO2 06/12/17 04:00 98.2 89 20 117/67 97 Room Air 06/12/17 00:00 98.4 88 19 119/79 98 Room Air 06/11/17 20:00 98.6 93 19 114/72 94 Room Air 06/11/17 16:00 98.4 91 18 118/74 93 Room Air 06/11/17 16:00 92 06/11/17 12:00 88 06/11/17 12:00 98.5 75 18 120/68 93 Room Air 06/11/17 08:00 77 06/11/17 08:00 98.6 83 18 115/66 94 Room Air Intake and Output 06/11/17 06/12/17 19:00 07:00 Intake Total 1701.636 ml 750 ml Output Total 800 ml Balance 901.636 ml 750 ml Intake Oral 900 ml IV Total 801.636 ml 750 ml Output Urine Total 800 ml # Voids 2 General Appearance: no acute distress, other - awake, alert, obese, disheveled male HEENT: normocephalic, atraumatic, anicteric, mucous membranes moist, PERRL Respiratory/Chest: chest wall non-tender, no respiratory distress, no accessory muscle use, decreased breath sounds Cardiovascular: normal peripheral pulses, normal rate, regular rhythm, no JVD Abdomen: normal bowel sounds, soft, non tender - obese Genitourinary: normal external genitalia Extremities: no edema, pedal pulses normal 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, no motor/sensory deficits, alert, oriented x 3, responsive Musculoskeletal: normal muscle bulk Microbiology Date/Time Source Procedure Growth Status 06/10/17 15:44 Blood Blood Culture - Preliminary NO GROWTH AFTER 24 HOURS Resulted 06/10/17 15:34 Blood Blood Culture - Preliminary NO GROWTH AFTER 24 HOURS Resulted 06/10/17 22:00 Wound Gram Stain - Final Resulted 06/10/17 22:00 Wound Wound Culture Pending Resulted Laboratory Tests 06/11/17 21:45: Vancomycin Level Trough 13.4H 06/12/17 03:30: Urine Legionella Antigen [Pending] Current Medications Medications (Trade) Dose Ordered Sig/Driss Route PRN Reason Start Time Stop Time Status Last Admin Dose Admin Acetaminophen (Tylenol) 650 mg Q4H PRN ORAL FEVER 06/11/17 20:15 07/11/17 20:14 Albuterol/ Ipratropium (DuoNeb 0.5-3(2.5)mg/3ml) 3 ml Q4H PRN HHN Shortness of Breath 06/11/17 20:15 06/16/17 20:14 Bupropion HCl (Wellbutrin XL) 150 mg DAILY ORAL 06/12/17 09:00 07/12/17 08:59 Dextrose (Dextrose 50%) STAT PRN IV Hypoglycemia 06/11/17 19:45 07/11/17 19:44 Heparin Sodium (Porcine) (Heparin 5000 units/ml) 5,000 units EVERY 12 HOURS SUBQ 06/11/17 21:00 07/11/17 20:59 06/11/17 20:41 Levofloxacin (Levaquin) 750 mg Q24H ORAL 06/11/17 21:00 06/18/17 20:59 06/11/17 20:38 Lorazepam (Ativan 2mg/ml 1ml) 2 mg Q2H PRN IV For Anxiety 06/11/17 18:15 06/18/17 18:14 06/11/17 21:56 Morphine Sulfate (Morphine Sulfate) 4 mg Q4H PRN IVP Severe Pain (Pain Scale 7-10) 06/11/17 20:15 06/18/17 20:14 Mupirocin 1 applic 1 applic THREE TIMES A DAY TOPIC 06/11/17 20:00 06/16/17 19:59 06/11/17 22:29 Ondansetron HCl (Zofran) 4 mg Q6H PRN IVP Nausea & Vomiting 06/11/17 20:15 07/11/17 20:14 Paroxetine HCl (Paxil) 10 mg BEDTIME ORAL 06/11/17 21:00 07/11/17 20:59 06/11/17 21:57 Polyethylene Glycol (Miralax) 17 gm DAILYPRN PRN ORAL Constipation 06/11/17 20:15 07/11/17 20:14 Promethazine HCl/ Codeine (Phenergan with Codeine) 5 ml Q4H PRN ORAL For Cough 06/11/17 20:15 07/11/17 20:14 Sodium Chloride (Sodium Chloride 1000ml bag) 1,000 ml @ 75 mls/hr [id number] IV 06/11/17 18:15 07/11/17 18:14 06/11/17 20:00 Vancomycin HCl/ Dextrose (Vancomycin 1.5gm/D5W 250ml) 250 ml @ 125 mls/hr Q8H IVPB 06/11/17 23:00 06/16/17 22:59 06/12/17 06:10 Domenica Lamb NP (Vanchtein) Jun 12, 2017 07:44
[2017-06-12 08:15] VITALS: BP 126/82
[2017-06-12] MEDS ORDERED: BuPROPion XL 150mg tab ORAL SCH (09:00)
[2017-06-12] MEDS: BuPROPion XL 150mg tab ORAL SCH (09:02)
[2017-06-12 09:03] LABS: BASOPHILS % (AUTO) 1.5 % (0.0-2.0); LYMPHOCYTES % (AUTO) 20.3 % (20.0-45.0); MEAN CORPUSCULAR HGB CONC 32.5 G/DL (32.0-36.0); MEAN CORPUSCULAR VOLUME 89 FL (80-99); MEAN PLATELET VOLUME 7.3 FL (6.5-10.1); MONOCYTES % (AUTO) 12.3 % (1.0-10.0); NEUTROPHILS % (AUTO) 63.9 % (45.0-75.0); PLATELET COUNT 308 K/UL (150-450); RED BLOOD COUNT 4.37 M/UL (4.70-6.10); RED CELL DISTRIBUTION WIDTH 12.1 % (11.6-14.8); WHITE BLOOD COUNT 7.1 K/UL (4.8-10.8)
[2017-06-12 09:04] LABS: ANION GAP 11 (5-15); CALCIUM 8.7 mg/dL (8.6-10.2); CARBON DIOXIDE 23 mEQ/L (20-30); CHLORIDE 104 mEQ/L (98-107); CREATININE 0.8 mg/dL (0.7-1.2); GLOMERULAR FILTRATION RATE > 60 mL/min (>60); HEMOLYSIS 12; MAGNESIUM 1.6 mg/dL (1.7-2.5); POTASSIUM 3.7 mEQ/L (3.4-4.9); SODIUM 138 mEQ/L (135-145)
[2017-06-12] MEDS: Heparin 5000 units/ml inj SUBQ SCH ×2 (09:07→20:57)
[2017-06-12] MEDS: LORazepam Inj 2mg/ml 1ml IV PRN (09:26)
[2017-06-12] MEDS: DuoNeb 0.5-3(2.5)mg/3ml neb HHN PRN ×2 (09:40→21:19)
[2017-06-12 12:00] VITALS: BP 118/72
[2017-06-12 15:55] VITALS: BP 124/82
[2017-06-12] MEDS: Morphine Sulfate 4mg/ml Inj IVP PRN ×2 (18:20→23:10)
--- NOTE | 2017-06-12 18:38 | Infectious Diseases Prog Note ---
Assessment/Plan Assessment/Plan ASSESSMENT: 41 y/o homeless male with: 1) LLL pneumonia--homeless, living in car with mother, but no TB exposure risk. acute presentation. responding to current therapy on day #2, currently Levofloxacin. 2) leukocytosis--resolved 3) R arm thrombophlebitis 4) BLE venous stasis 5) BLE eschars, small, w/o surrounding cellulitis recent IVDU--viral hepatitis panel and HIV rapid test negative MDD--started on wellbutrin and paxil by psych PLAN: --d/c cefepime --Continue levofloxacin 750mg PO q24hr d#2 of 5 --continue IV vancomycin d#2 for RUE thrombophlebitis. --R arm warm compresses --Continue mupirocin topical to lesions on ble legs --rest/elevation BLE --f/u urine legionella Ag --monitor CBC --monitor temp curve --f/u blood cx 8/ ngtd --on levofloxacin and now newly started on SSRI, will obtain EKG now to document baseline QTc Subjective Constitutional: Reports: no symptoms HEENT: Reports: no symptoms Respiratory: Reports: other - decreased L pleuritic chest pain Cardiovascular: Reports: no symptoms Gastrointestinal/Abdominal: Reports: no symptoms Genitourinary: Reports: no symptoms Psychiatric: Reports: depression Skin: Reports: ulcer Endocrine: Reports: no symptoms Hematologic: Reports: no symptoms Musculoskeletal: Reports: other - to RUE medial just distal to antecubital fossa, pain, swelling Allergies: Coded Allergies: No Known Allergies (Unverified , 06/10/17) Objective Vital Signs Last 24 Hour Vital Signs Date Time Temp Pulse Resp B/P Pulse Ox O2 Delivery O2 Flow Rate FiO2 06/12/17 15:55 97.9 90 20 124/82 96 Room Air 06/12/17 12:00 98.0 88 20 118/72 97 Room Air 06/12/17 09:50 84 20 100 Room Air 06/12/17 09:45 82 20 96 Room Air 06/12/17 09:45 82 20 Room Air 06/12/17 08:15 98.2 82 20 126/82 96 Room Air 06/12/17 07:30 96 Room Air 06/12/17 04:00 98.2 89 20 117/67 97 Room Air 06/12/17 00:00 98.4 88 19 119/79 98 Room Air 06/11/17 20:00 98.6 93 19 114/72 94 Room Air Height (Feet): 6 Height (Inches): 1.00 Weight (Pounds): 295 Objective VITAL SIGNS: GEN: awake, alert, non toxic appearing HEENT: Mild pale conjunctiva. oral mucosa dry, phaynx w/o exudate or effusion. No icterus. Head normocephalic, neck supple. NECK: No cervical LAD CHEST: Clear to auscultation bilaterally except faint crackles L base HEART: S1 and S2, no murmurs, no rubs. ABDOMEN: soft, non tender, non distended, normoactive bowel sounds. EXTREMITIES: No cyanosis, no clubbing, trace BLE edema. no erythema to BLE, but multiple eschars in different stages of healing. no fluctuance. no warmth. nvi. R forearm medially with palpable painful cord with worsened erythema. no fluctuance NEUROLOGIC: Awake, alert, no focal neurologic motor deficits. : deferred LYMPH: no LAD RECTAL: deferred Microbiology Date/Time Source Procedure Growth Status 06/10/17 15:44 Blood Blood Culture - Preliminary NO GROWTH AFTER 24 HOURS Resulted 06/10/17 15:34 Blood Blood Culture - Preliminary NO GROWTH AFTER 24 HOURS Resulted 06/10/17 22:00 Wound Gram Stain - Final Resulted 06/10/17 22:00 Wound Wound Culture Pending Resulted 06/11/17 09:30 Sputum Gram Stain - Final Resulted 06/11/17 09:30 Sputum Sputum Culture Pending Resulted Laboratory Tests Test 06/11/17 21:45 06/12/17 03:30 06/12/17 08:20 Vancomycin Level Trough 13.4 ug/mL (5.0-12.0) H Urine Legionella Antigen Pending White Blood Count 7.1 K/UL (4.8-10.8) Red Blood Count 4.37 M/UL (4.70-6.10) L Hemoglobin 12.7 G/DL (14.2-18.0) L Hematocrit 39.0 % (42.0-52.0) L Mean Corpuscular Volume 89 FL (80-99) Mean Corpuscular Hemoglobin 29.0 PG (27.0-31.0) Mean Corpuscular Hemoglobin Concent 32.5 G/DL (32.0-36.0) Red Cell Distribution Width 12.1 % (11.6-14.8) Platelet Count 308 K/UL (150-450) Mean Platelet Volume 7.3 FL (6.5-10.1) Neutrophils (%) (Auto) 63.9 % (45.0-75.0) Lymphocytes (%) (Auto) 20.3 % (20.0-45.0) Monocytes (%) (Auto) 12.3 % (1.0-10.0) H Eosinophils (%) (Auto) 2.0 % (0.0-3.0) Basophils (%) (Auto) 1.5 % (0.0-2.0) Sodium Level 138 mEQ/L (135-145) Potassium Level 3.7 mEQ/L (3.4-4.9) Chloride Level 104 mEQ/L (98-107) Carbon Dioxide Level 23 mEQ/L (20-30) Anion Gap 11 (5-15) Blood Urea Nitrogen 7 mg/dL (7-23) Creatinine 0.8 mg/dL (0.7-1.2) Estimat Glomerular Filtration Rate > 60 mL/min (>60) Glucose Level 134 mg/dL (74-106) H Calcium Level 8.7 mg/dL (8.6-10.2) Magnesium Level 1.6 mg/dL (1.7-2.5) L Current Medications Medications (Trade) Dose Ordered Sig/Driss Route PRN Reason Start Time Stop Time Status Last Admin Dose Admin Acetaminophen (Tylenol) 650 mg Q4H PRN ORAL FEVER 06/11/17 20:15 07/11/17 20:14 Albuterol/ Ipratropium (DuoNeb 0.5-3(2.5)mg/3ml) 3 ml Q4H PRN HHN Shortness of Breath 06/11/17 20:15 06/16/17 20:14 06/12/17 09:40 Bupropion HCl (Wellbutrin XL) 150 mg DAILY ORAL 06/12/17 09:00 07/12/17 08:59 06/12/17 09:02 Dextrose (Dextrose 50%) STAT PRN IV Hypoglycemia 06/11/17 19:45 07/11/17 19:44 Heparin Sodium (Porcine) (Heparin 5000 units/ml) 5,000 units EVERY 12 HOURS SUBQ 06/11/17 21:00 07/11/17 20:59 06/12/17 09:07 Levofloxacin (Levaquin) 750 mg Q24H ORAL 06/11/17 21:00 06/18/17 20:59 06/11/17 20:38 Lorazepam (Ativan 2mg/ml 1ml) 2 mg Q2H PRN IV For Anxiety 06/11/17 18:15 06/18/17 18:14 06/12/17 09:26 Morphine Sulfate (Morphine Sulfate) 4 mg Q4H PRN IVP Severe Pain (Pain Scale 7-10) 06/11/17 20:15 06/18/17 20:14 06/12/17 18:20 Mupirocin 1 applic 1 applic THREE TIMES A DAY TOPIC 06/11/17 20:00 06/16/17 19:59 06/12/17 18:25 Ondansetron HCl (Zofran) 4 mg Q6H PRN IVP Nausea & Vomiting 06/11/17 20:15 07/11/17 20:14 Paroxetine HCl (Paxil) 10 mg BEDTIME ORAL 06/11/17 21:00 07/11/17 20:59 06/11/17 21:57 Polyethylene Glycol (Miralax) 17 gm DAILYPRN PRN ORAL Constipation 06/11/17 20:15 07/11/17 20:14 Promethazine HCl/ Codeine (Phenergan with Codeine) 5 ml Q4H PRN ORAL For Cough 06/11/17 20:15 07/11/17 20:14 Sodium Chloride (Sodium Chloride 1000ml bag) 1,000 ml @ 75 mls/hr [id number] IV 06/11/17 18:15 07/11/17 18:14 06/12/17 13:14 Vancomycin HCl/ Dextrose (Vancomycin 1.5gm/D5W 250ml) 250 ml @ 125 mls/hr Q8H IVPB 06/11/17 23:00 06/16/17 22:59 06/12/17 06:10 Kendrick Gonzalez M.D. Jun 12, 2017 18:38
[2017-06-12 20:00] VITALS: BP 119/80
[2017-06-12] MEDS: PARoxetine 10mg tab ORAL SCH (20:54)
--- NOTE | 2017-06-12 22:15 | Progress Note ---
LASUBJECTIVE: The patient stated that he was able to sleep better. However, he still presents with anxiety, depressed mood, anhedonia, worthlessness, hopelessness, and decreased energy. The patient has been easily distraught. He stated that he has been having severe loneliness, hopelessness, and helplessness. MENTAL STATUS EXAM: Alert and oriented x4. Disheveled. Mood is depressed. Affect is constricted. Congruent with mood. Thought process is concrete. Thought content, no suicidal or homicidal ideation. ASSESSMENT: Major depressive disorder. PLAN: 1. The patient will be continued on current medication. 2. Provide the patient with supportive therapy and reality orientation. Tari Ryan M.D. DR: NAVI JOB#: [id number] CC:
[2017-06-12] MEDS ORDERED: NS 275ml ONE (22:48)
[2017-06-12] MEDS ORDERED: Tubing IV Secondary IV ONE (22:48)
[2017-06-13] VITALS: BP 124/82
[2017-06-13] MEDS: LORazepam Inj 2mg/ml 1ml IV PRN ×4 (00:36→22:16)
--- NOTE | 2017-06-13 03:32 | Wound Care Consultation ---
Wound Assessment Wound Assessment : Wound Number: #1 Wound Present on Admission: Yes New Wound: No Status Change of Wound: No Wound Location Body Site Modif: left, right, lower Wound Location Body Site: leg Wound Type: other - BLE cellulitis Ines Test: Does not Ines Edema Degree: 3+ deep indentation Wound Thickness: Full Thickness Percent of Wound [place]/Red: 100 Wound Drainage Description: Serosanguineous Wound Drainage Amount: Scant Wound Drainage Odor: None/Absent Wound General Appearance: Reddened Wound Comment #1 BLE cellulitis with scattered open and dry wounds #2 Dryness on both feet Recommendation -Keep clean and dry -Turn and reposition -Optimize nutrition -Heel protector on both heels -Offload both heels -A&D ointment on both lower legs -Assess and f/u accordingly for any changes PAVEL FORBES RN Jun 13, 2017 03:32
[2017-06-13 04:00] VITALS: BP 130/84
[2017-06-13] MEDS: Vancomycin 1.5gm/D5W 250ml 250 ML IVPB SCH ×2 (06:24→14:03)
[2017-06-13] MEDS: Morphine Sulfate 4mg/ml Inj IVP PRN ×4 (06:25→22:56)
[2017-06-13 08:24] VITALS: BP 121/76
[2017-06-13] MEDS: Heparin 5000 units/ml inj SUBQ SCH ×2 (08:40→20:31)
[2017-06-13] MEDS: BuPROPion XL 150mg tab ORAL SCH (08:41)
[2017-06-13 09:12] LABS: BASOPHILS % (AUTO) 1.1 % (0.0-2.0); EOSINOPHILS % (AUTO) 1.6 % (0.0-3.0); LYMPHOCYTES % (AUTO) 24.3 % (20.0-45.0); MEAN CORPUSCULAR HEMOGLOBIN 29.8 PG (27.0-31.0); MEAN CORPUSCULAR HGB CONC 33.2 G/DL (32.0-36.0); MEAN CORPUSCULAR VOLUME 90 FL (80-99); MEAN PLATELET VOLUME 6.9 FL (6.5-10.1); MONOCYTES % (AUTO) 10.3 % (1.0-10.0); NEUTROPHILS % (AUTO) 62.8 % (45.0-75.0); PLATELET COUNT 348 K/UL (150-450); RED BLOOD COUNT 4.41 M/UL (4.70-6.10); RED CELL DISTRIBUTION WIDTH 12.3 % (11.6-14.8); WHITE BLOOD COUNT 7.6 K/UL (4.8-10.8)
[2017-06-13] MEDS: Vitamin A&D Oint 2oz Tube TOPIC SCH ×2 (09:14→20:28)
[2017-06-13 09:28] LABS: ANION GAP 10 (5-15); CALCIUM 8.8 mg/dL (8.6-10.2); CARBON DIOXIDE 25 mEQ/L (20-30); CHLORIDE 104 mEQ/L (98-107); GLOMERULAR FILTRATION RATE > 60 mL/min (>60); POTASSIUM 3.9 mEQ/L (3.4-4.9); SODIUM 139 mEQ/L (135-145)
[2017-06-13 09:42] LABS: HEMOLYSIS 2
--- NOTE | 2017-06-13 09:54 | Pulmonology Progress Note ---
Assessment/Plan Assessment/Plan ASSESSMENT LLL pneumonia LUE thrombophlebitis Venous stasis BLE electrolyte abnormalities ( hypo K, hypo Mg) tachycardia major depressive disorder PLAN OF CARE MS floor IVF O2 HHN prn antitussive prn abx ID follows sputum cx if able CXR with left base consolidation CTA no PE, L base PNA warm compresses to LUE as ordered elevate LUE pain management HIV test negative hepatitis panel negative DVT prophylaxis psych seen and evaluated started on Paxil and Wellbutrin tachycardia was likely due to fever, resolved when fever resolved K and Mg stable after replacement wound care for bilateral leg stasis as per wound nurse recomemdnatiosn case discussed and evaluated by supervising physician Subjective Allergies: Coded Allergies: No Known Allergies (Unverified , 06/10/17) Subjective leukocytosis resolved, afebrile, improving walking in the room less congestion , cough diminished Objective Last 24 Hour Vital Signs Date Time Temp Pulse Resp B/P Pulse Ox O2 Delivery O2 Flow Rate FiO2 06/13/17 08:24 98.4 83 20 121/76 100 Room Air 06/13/17 07:30 86 20 Room Air 21 06/13/17 07:30 97 Room Air 21 06/13/17 04:00 98.2 90 18 130/84 97 Room Air 06/13/17 00:00 98.1 89 18 124/82 98 Room Air 06/12/17 21:34 89 20 100 Room Air 21 06/12/17 21:19 86 20 97 Room Air 21 06/12/17 20:00 98.0 87 19 119/80 96 Room Air 06/12/17 15:55 97.9 90 20 124/82 96 Room Air 06/12/17 12:00 98.0 88 20 118/72 97 Room Air Intake and Output 06/12/17 06/13/17 19:00 07:00 Intake Total 1155 ml 1525 ml Output Total 1600 ml 600 ml Balance -445 ml 925 ml Intake Oral 1080 ml 450 ml IV Total 75 ml 1075 ml Output Urine Total 1600 ml 600 ml Objective General Appearance: no acute distress, other - awake, alert, obese, disheveled male HEENT: normocephalic, atraumatic, anicteric, mucous membranes moist, PERRL Respiratory/Chest: chest wall non-tender, no respiratory distress, no accessory muscle use, decreased breath sounds Cardiovascular: normal peripheral pulses, normal rate, regular rhythm, no JVD Abdomen: normal bowel sounds, soft, non tender - obese Genitourinary: normal external genitalia Extremities: no edema, pedal pulses normal 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 Complete 06/10/17 22:00 Rectal Mucosa VRE Culture - Final NO VANCOMYCIN RESISTANT ENTEROCOCCUS ... Complete Laboratory Tests 06/13/17 08:40: White Blood Count 7.6, Red Blood Count 4.41L, Hemoglobin 13.1L, Hematocrit 39.5L , Mean Corpuscular Volume 90, Mean Corpuscular Hemoglobin 29.8, Mean Corpuscular Hemoglobin Concent 33.2, Red Cell Distribution Width 12.3, Platelet Count 348, Mean Platelet Volume 6.9, Neutrophils (%) (Auto) 62.8, Lymphocytes (% ) (Auto) 24.3, Monocytes (%) (Auto) 10.3H, Eosinophils (%) (Auto) 1.6, Basophils (%) (Auto) 1.1, Sodium Level 139, Potassium Level 3.9, Chloride Level 104, Carbon Dioxide Level 25, Anion Gap 10, Blood Urea Nitrogen 7, Creatinine 1.0, Estimat Glomerular Filtration Rate > 60, Glucose Level 103, Calcium Level 8.8, Magnesium Level [Pending] Current Medications Medications (Trade) Dose Ordered Sig/Driss Route PRN Reason Start Time Stop Time Status Last Admin Dose Admin Acetaminophen (Tylenol) 650 mg Q4H PRN ORAL FEVER 06/11/17 20:15 07/11/17 20:14 Albuterol/ Ipratropium (DuoNeb 0.5-3(2.5)mg/3ml) 3 ml Q4H PRN HHN Shortness of Breath 06/11/17 20:15 06/16/17 20:14 06/12/17 21:19 Bupropion HCl (Wellbutrin XL) 150 mg DAILY ORAL 06/12/17 09:00 07/12/17 08:59 06/13/17 08:41 Dextrose (Dextrose 50%) STAT PRN IV Hypoglycemia 06/11/17 19:45 07/11/17 19:44 Heparin Sodium (Porcine) (Heparin 5000 units/ml) 5,000 units EVERY 12 HOURS SUBQ 06/11/17 21:00 07/11/17 20:59 06/13/17 08:40 Levofloxacin (Levaquin) 750 mg Q24H ORAL 06/11/17 21:00 06/18/17 20:59 06/12/17 20:54 Lorazepam (Ativan 2mg/ml 1ml) 2 mg Q2H PRN IV For Anxiety 06/11/17 18:15 06/18/17 18:14 06/13/17 00:36 Morphine Sulfate (Morphine Sulfate) 4 mg Q4H PRN IVP Severe Pain (Pain Scale 7-10) 06/11/17 20:15 06/18/17 20:14 06/13/17 06:25 Mupirocin 1 applic 1 applic THREE TIMES A DAY TOPIC 06/11/17 20:00 06/16/17 19:59 06/13/17 08:41 Ondansetron HCl (Zofran) 4 mg Q6H PRN IVP Nausea & Vomiting 06/11/17 20:15 07/11/17 20:14 Paroxetine HCl (Paxil) 10 mg BEDTIME ORAL 06/11/17 21:00 07/11/17 20:59 06/12/17 20:54 Polyethylene Glycol (Miralax) 17 gm DAILYPRN PRN ORAL Constipation 06/11/17 20:15 07/11/17 20:14 Promethazine HCl/ Codeine (Phenergan with Codeine) 5 ml Q4H PRN ORAL For Cough 06/11/17 20:15 07/11/17 20:14 Sodium Chloride (Sodium Chloride 1000ml bag) 1,000 ml @ 75 mls/hr [id number] IV 06/11/17 18:15 07/11/17 18:14 06/12/17 20:55 Vancomycin HCl/ Dextrose (Vancomycin 1.5gm/D5W 250ml) 250 ml @ 125 mls/hr Q8H IVPB 06/11/17 23:00 06/16/17 22:59 06/13/17 06:24 Vitamin A/Vitamin D (A & D Oint) 1 applic EVERY 12 HOURS TOPIC 06/13/17 09:00 07/13/17 08:59 06/13/17 09:14 Domenica Lamb NP (Vanchtein) Jun 13, 2017 09:54
[2017-06-13 11:47] VITALS: BP 131/81
[2017-06-13 16:05] VITALS: BP 116/75
--- NOTE | 2017-06-13 17:44 | Infectious Diseases Prog Note ---
Assessment/Plan Assessment/Plan ASSESSMENT: 41 y/o homeless male with: 1) LLL pneumonia--homeless, living in car with mother, but no TB exposure risk. acute presentation. responding to current therapy on day #3, currently Levofloxacin. improved pulm exam on bronchodilators treatments. 2) leukocytosis--resolved 3) R arm thrombophlebitis, stable 4) BLE venous stasis 5) BLE eschars, small, w/o surrounding cellulitis, on mupirocin and wound care recent IVDU--viral hepatitis panel and HIV rapid test negative MDD--started on wellbutrin and paxil by psych PLAN: --d/c cefepime --Continue levofloxacin 750mg PO q24hr d#3 of 5 (06/12/17) s/p cefepime d#1 Baseline QTC wnl 425ms --continue IV vancomycin d#3/5 for RUE thrombophlebitis. --R arm warm compresses --Continue mupirocin topical to lesions on ble legs --rest/elevation BLE --f/u urine legionella Ag --monitor CBC --monitor temp curve --f/u blood cx 06/10 and 06/11 ngtd Subjective Constitutional: Reports: no symptoms Respiratory: Reports: dry cough Cardiovascular: Reports: no symptoms Genitourinary: Reports: no symptoms Skin: Reports: rash Allergies: Coded Allergies: No Known Allergies (Unverified , 06/10/17) Objective Vital Signs Last 24 Hour Vital Signs Date Time Temp Pulse Resp B/P Pulse Ox O2 Delivery O2 Flow Rate FiO2 06/13/17 16:05 98.2 85 20 116/75 98 Room Air 06/13/17 11:47 98.2 85 20 131/81 100 Room Air 06/13/17 11:40 98.2 06/13/17 08:24 98.4 83 20 121/76 100 Room Air 06/13/17 07:30 86 20 Room Air 21 06/13/17 07:30 97 Room Air 06/13/17 04:00 98.2 90 18 130/84 97 Room Air 06/13/17 00:00 98.1 89 18 124/82 98 Room Air 06/12/17 21:34 89 20 100 Room Air 21 06/12/17 21:19 86 20 97 Room Air 21 06/12/17 20:00 98.0 87 19 119/80 96 Room Air Height (Feet): 6 Height (Inches): 1.00 Weight (Pounds): 295 Objective VITAL SIGNS: GEN: awake, alert, non toxic appearing HEENT: Mild pale conjunctiva. oral mucosa dry, phaynx w/o exudate or effusion. No icterus. Head normocephalic, neck supple. NECK: No cervical LAD CHEST: Clear to auscultation bilaterally except faint crackles L base HEART: S1 and S2, no murmurs, no rubs. ABDOMEN: soft, non tender, non distended, normoactive bowel sounds. EXTREMITIES: No cyanosis, no clubbing, trace BLE edema. no erythema to BLE, but multiple eschars in different stages of healing. no fluctuance. no warmth. nvi. R forearm medially with palpable painful cord with worsened erythema. no fluctuance NEUROLOGIC: Awake, alert, no focal neurologic motor deficits. : deferred LYMPH: no LAD RECTAL: deferred Microbiology Date/Time Source Procedure Growth Status 06/11/17 21:15 Blood Blood Culture - Preliminary NO GROWTH AFTER 24 HOURS Resulted 06/11/17 21:00 Blood Blood Culture - Preliminary NO GROWTH AFTER 24 HOURS Resulted 06/10/17 22:00 Wound Gram Stain - Final Resulted 06/10/17 22:00 Wound Culture - Preliminary Staphylococcus Aureus Resulted 06/11/17 09:30 Sputum Gram Stain - Final Complete 06/11/17 09:30 Sputum Sputum Culture - Final NORMAL UPPER RESPIRATORY REYES AT 48 ... Complete 06/10/17 22:00 Nasal Nares Right MRSA Culture - Final NO METHICILLIN RESISTANT STAPH AUREUS... Complete 06/10/17 22:00 Rectal Mucosa VRE Culture - Final NO VANCOMYCIN RESISTANT ENTEROCOCCUS ... Complete Laboratory Tests Test 06/13/17 08:40 White Blood Count 7.6 K/UL (4.8-10.8) Red Blood Count 4.41 M/UL (4.70-6.10) L Hemoglobin 13.1 G/DL (14.2-18.0) L Hematocrit 39.5 % (42.0-52.0) L Mean Corpuscular Volume 90 FL (80-99) Mean Corpuscular Hemoglobin 29.8 PG (27.0-31.0) Mean Corpuscular Hemoglobin Concent 33.2 G/DL (32.0-36.0) Red Cell Distribution Width 12.3 % (11.6-14.8) Platelet Count 348 K/UL (150-450) Mean Platelet Volume 6.9 FL (6.5-10.1) Neutrophils (%) (Auto) 62.8 % (45.0-75.0) Lymphocytes (%) (Auto) 24.3 % (20.0-45.0) Monocytes (%) (Auto) 10.3 % (1.0-10.0) H Eosinophils (%) (Auto) 1.6 % (0.0-3.0) Basophils (%) (Auto) 1.1 % (0.0-2.0) Sodium Level 139 mEQ/L (135-145) Potassium Level 3.9 mEQ/L (3.4-4.9) Chloride Level 104 mEQ/L (98-107) Carbon Dioxide Level 25 mEQ/L (20-30) Anion Gap 10 (5-15) Blood Urea Nitrogen 7 mg/dL (7-23) Creatinine 1.0 mg/dL (0.7-1.2) Estimat Glomerular Filtration Rate > 60 mL/min (>60) Glucose Level 103 mg/dL (74-106) Calcium Level 8.8 mg/dL (8.6-10.2) Magnesium Level 2.0 mg/dL (1.7-2.5) Current Medications Medications (Trade) Dose Ordered Sig/Driss Route PRN Reason Start Time Stop Time Status Last Admin Dose Admin Acetaminophen (Tylenol) 650 mg Q4H PRN ORAL FEVER 06/11/17 20:15 07/11/17 20:14 Albuterol/ Ipratropium (DuoNeb 0.5-3(2.5)mg/3ml) 3 ml Q4H PRN HHN Shortness of Breath 06/11/17 20:15 06/16/17 20:14 06/12/17 21:19 Bupropion HCl (Wellbutrin XL) 150 mg DAILY ORAL 06/12/17 09:00 07/12/17 08:59 06/13/17 08:41 Dextrose (Dextrose 50%) STAT PRN IV Hypoglycemia 06/11/17 19:45 07/11/17 19:44 Heparin Sodium (Porcine) (Heparin 5000 units/ml) 5,000 units EVERY 12 HOURS SUBQ 06/11/17 21:00 07/11/17 20:59 06/13/17 08:40 Levofloxacin (Levaquin) 750 mg Q24H ORAL 06/11/17 21:00 06/18/17 20:59 06/12/17 20:54 Lorazepam (Ativan 2mg/ml 1ml) 2 mg Q2H PRN IV For Anxiety 06/11/17 18:15 06/18/17 18:14 06/13/17 17:18 Morphine Sulfate (Morphine Sulfate) 4 mg Q4H PRN IVP Severe Pain (Pain Scale 7-10) 06/11/17 20:15 06/18/17 20:14 06/13/17 17:18 Mupirocin 1 applic 1 applic THREE TIMES A DAY TOPIC 06/11/17 20:00 06/16/17 19:59 06/13/17 17:00 Ondansetron HCl (Zofran) 4 mg Q6H PRN IVP Nausea & Vomiting 06/11/17 20:15 07/11/17 20:14 Paroxetine HCl (Paxil) 10 mg BEDTIME ORAL 06/11/17 21:00 07/11/17 20:59 06/12/17 20:54 Polyethylene Glycol (Miralax) 17 gm DAILYPRN PRN ORAL Constipation 06/11/17 20:15 07/11/17 20:14 Promethazine HCl/ Codeine (Phenergan with Codeine) 5 ml Q4H PRN ORAL For Cough 06/11/17 20:15 07/11/17 20:14 Sodium Chloride (Sodium Chloride 1000ml bag) 1,000 ml @ 75 mls/hr [id number] IV 06/11/17 18:15 07/11/17 18:14 06/13/17 10:23 Vancomycin HCl/ Dextrose (Vancomycin 1.5gm/D5W 250ml) 250 ml @ 125 mls/hr Q8H IVPB 06/11/17 23:00 06/16/17 22:59 06/13/17 14:03 Vitamin A/Vitamin D (A & D Oint) 1 applic EVERY 12 HOURS TOPIC 06/13/17 09:00 07/13/17 08:59 06/13/17 09:14 Kendrick Gonzalez M.D. Jun 13, 2017 17:44
[2017-06-13 20:00] VITALS: BP 146/72
[2017-06-13] MEDS: PARoxetine 10mg tab ORAL SCH (20:27)
[2017-06-13] MEDS ORDERED: Tubing IV Secondary IV ONE (21:21)
[2017-06-14] VITALS (7 sets, daily range): BP systolic 101–144; BP diastolic 48–95
[2017-06-14] MEDS: Vancomycin 1.5gm/D5W 250ml 250 ML IVPB SCH ×4 (00:34→22:30)
[2017-06-14] MEDS: Morphine Sulfate 4mg/ml Inj IVP PRN ×3 (07:51→20:36)
[2017-06-14] MEDS: Vitamin A&D Oint 2oz Tube TOPIC SCH ×2 (07:52→20:45)
[2017-06-14] MEDS: BuPROPion XL 150mg tab ORAL SCH (07:52)
[2017-06-14] MEDS: Heparin 5000 units/ml inj SUBQ SCH ×2 (07:57→20:35)
[2017-06-14] MEDS: LORazepam Inj 2mg/ml 1ml IV PRN ×3 (10:05→22:39)
--- NOTE | 2017-06-14 11:16 | Pulmonology Progress Note ---
Assessment/Plan Assessment/Plan ASSESSMENT LLL pneumonia LUE thrombophlebitis Venous stasis BLE electrolyte abnormalities ( hypo K, hypo Mg) tachycardia major depressive disorder PLAN OF CARE MS floor IVF O2 HHN prn antitussive prn abx ID follows sputum cx if able CXR with left base consolidation CTA no PE, L base PNA warm compresses to LUE as ordered elevate LUE pain management HIV test negative hepatitis panel negative DVT prophylaxis psych seen and evaluated started on Paxil and Wellbutrin tachycardia was likely due to fever, resolved when fever resolved K and Mg stable after replacement wound care for bilateral leg stasis as per wound nurse recommendations dc plan for am with ID recommendations, will need script for oral abx and topical cream for legs case discussed and evaluated by supervising physician Subjective Allergies: Coded Allergies: No Known Allergies (Unverified , 06/10/17) Subjective leukocytosis resolved, afebrile, improving less congestion , cough diminished Objective Last 24 Hour Vital Signs Date Time Temp Pulse Resp B/P Pulse Ox O2 Delivery O2 Flow Rate FiO2 06/14/17 08:21 98.2 06/14/17 08:00 98.2 83 20 144/85 96 Room Air 06/14/17 04:00 98.0 66 19 101/48 98 Room Air 06/14/17 00:00 99.0 90 18 139/67 100 Room Air 06/13/17 20:00 99.5 95 16 146/72 95 Room Air 06/13/17 16:05 98.2 85 20 116/75 98 Room Air 06/13/17 11:47 98.2 85 20 131/81 100 Room Air Intake and Output 06/13/17 06/14/17 19:00 07:00 Intake Total 2750 ml 700 ml Output Total 1200 ml Balance 1550 ml 700 ml Intake Oral 1080 ml IV Total 1670 ml 700 ml Output Urine Total 1200 ml # Voids 3 Objective General Appearance: no acute distress, other - awake, alert, obese, disheveled male HEENT: normocephalic, atraumatic, anicteric, mucous membranes moist, PERRL Respiratory/Chest: chest wall non-tender, no respiratory distress, no accessory muscle use, decreased breath sounds Cardiovascular: normal peripheral pulses, normal rate, regular rhythm, no JVD Abdomen: normal bowel sounds, soft, non tender - obese Genitourinary: normal external genitalia Extremities: no edema, pedal pulses normal Neurologic/Psychiatric: academic affairs vice president II-XII grossly normal, no motor/sensory deficits, alert, oriented x 3, responsive Musculoskeletal: normal muscle bulk Microbiology Date/Time Source Procedure Growth Status 06/11/17 21:15 Blood Blood Culture - Preliminary NO GROWTH AFTER 48 HOURS Resulted 06/11/17 21:00 Blood Blood Culture - Preliminary NO GROWTH AFTER 48 HOURS Resulted Current Medications Medications (Trade) Dose Ordered Sig/Driss Route PRN Reason Start Time Stop Time Status Last Admin Dose Admin Acetaminophen (Tylenol) 650 mg Q4H PRN ORAL FEVER 06/11/17 20:15 07/11/17 20:14 Albuterol/ Ipratropium (DuoNeb 0.5-3(2.5)mg/3ml) 3 ml Q4H PRN HHN Shortness of Breath 06/11/17 20:15 06/16/17 20:14 06/12/17 21:19 Bupropion HCl (Wellbutrin XL) 150 mg DAILY ORAL 06/12/17 09:00 07/12/17 08:59 06/14/17 07:52 Dextrose (Dextrose 50%) STAT PRN IV Hypoglycemia 06/11/17 19:45 07/11/17 19:44 Heparin Sodium (Porcine) (Heparin 5000 units/ml) 5,000 units EVERY 12 HOURS SUBQ 06/11/17 21:00 07/11/17 20:59 06/14/17 07:57 Levofloxacin (Levaquin) 750 mg Q24H ORAL 06/11/17 21:00 06/18/17 20:59 06/13/17 20:27 Lorazepam (Ativan 2mg/ml 1ml) 2 mg Q2H PRN IV For Anxiety 06/11/17 18:15 06/18/17 18:14 06/14/17 10:05 Morphine Sulfate (Morphine Sulfate) 4 mg Q4H PRN IVP Severe Pain (Pain Scale 7-10) 06/11/17 20:15 06/18/17 20:14 06/14/17 07:51 Mupirocin 1 applic 1 applic THREE TIMES A DAY TOPIC 06/11/17 20:00 06/16/17 19:59 06/14/17 07:52 Ondansetron HCl (Zofran) 4 mg Q6H PRN IVP Nausea & Vomiting 06/11/17 20:15 07/11/17 20:14 Paroxetine HCl (Paxil) 10 mg BEDTIME ORAL 06/11/17 21:00 07/11/17 20:59 06/13/17 20:27 Polyethylene Glycol (Miralax) 17 gm DAILYPRN PRN ORAL Constipation 06/11/17 20:15 07/11/17 20:14 Promethazine HCl/ Codeine (Phenergan with Codeine) 5 ml Q4H PRN ORAL For Cough 06/11/17 20:15 07/11/17 20:14 Sodium Chloride (Sodium Chloride 1000ml bag) 1,000 ml @ 75 mls/hr [id number] IV 06/11/17 18:15 07/11/17 18:14 06/13/17 22:04 Vancomycin HCl/ Dextrose (Vancomycin 1.5gm/D5W 250ml) 250 ml @ 125 mls/hr Q8H IVPB 06/11/17 23:00 06/16/17 22:59 06/14/17 06:44 Vitamin A/Vitamin D (A & D Oint) 1 applic EVERY 12 HOURS TOPIC 06/13/17 09:00 07/13/17 08:59 06/14/17 07:52 [facility]Domenica NP Jun 14, 2017 11:16
--- NOTE | 2017-06-14 16:20 | Cardiology Report ---
APPROVED REPORT EKG Measurement Heart [id number] [id number] [id number] Normal sinus rhythm Voltage criteria for left ventricular hypertrophy Possible Inferior infarct, age undetermined Abnormal ECG
--- NOTE | 2017-06-14 17:11 | Infectious Diseases Prog Note ---
Assessment/Plan Assessment/Plan ASSESSMENT: 41 y/o homeless male with: 1) LLL pneumonia--homeless, living in car with mother, but no TB exposure risk. acute presentation. responding to current therapy on day #4, currently Levofloxacin. improved pulm exam on bronchodilators treatments. 2) leukocytosis--resolved 3) R arm thrombophlebitis, stable, on IV vancomycin, blood cx from 06/11 ngtd 4) BLE venous stasis 5) BLE eschars, small, w/o surrounding cellulitis, on mupirocin and wound care. superificial cx grew MSSA. nares negative for MRSA colonization. recent IVDU--viral hepatitis panel and HIV rapid test negative MDD--started on wellbutrin and paxil by psych PLAN: --Continue levofloxacin 750mg PO q24hr d#4 of 5. give final dose in AM prior to hospital discharge and he will have completed the course. (06/12/17) s/p cefepime d#1 Baseline QTC wnl 425ms --continue IV vancomycin d#4/5 for RUE thrombophlebitis. final dose tommorrow --given persistence of erythema despite neg blood cx, ordered RUE u/s to r/o DVT prior to hospital dispo --R arm warm compresses --Continue mupirocin topical to lesions on ble legs --rest/elevation BLE --f/u urine legionella Ag --monitor CBC --monitor temp curve --f/u blood cx 06/10 and 06/11 ngtd Subjective Constitutional: Reports: no symptoms Skin: Reports: rash Musculoskeletal: Reports: pain, swelling Allergies: Coded Allergies: No Known Allergies (Unverified , 06/10/17) Objective Vital Signs Last 24 Hour Vital Signs Date Time Temp Pulse Resp B/P Pulse Ox O2 Delivery O2 Flow Rate FiO2 06/14/17 16:10 98.2 06/14/17 16:00 98.2 87 20 126/84 100 Room Air 06/14/17 12:00 98.6 96 20 122/95 95 Room Air 06/14/17 08:00 98.2 83 20 144/85 96 Room Air 06/14/17 04:00 98.0 66 19 101/48 98 Room Air 06/14/17 00:00 99.0 90 18 139/67 100 Room Air 06/13/17 20:00 99.5 95 16 146/72 95 Room Air Height (Feet): 6 Height (Inches): 1.00 Weight (Pounds): 295 Objective VITAL SIGNS: GEN: awake, alert, non toxic appearing HEENT: Mild pale conjunctiva. oral mucosa dry, phaynx w/o exudate or effusion. No icterus. Head normocephalic, neck supple. NECK: No cervical LAD CHEST: Clear to auscultation bilaterally except faint crackles L base HEART: S1 and S2, no murmurs, no rubs. ABDOMEN: soft, non tender, non distended, normoactive bowel sounds. EXTREMITIES: No cyanosis, no clubbing, trace BLE edema. no erythema to BLE, but multiple eschars in different stages of healing. no fluctuance. no warmth. nvi. R forearm medially with palpable painful cord with worsened erythema. no fluctuance NEUROLOGIC: Awake, alert, no focal neurologic motor deficits. : deferred LYMPH: no LAD RECTAL: deferred Microbiology Date/Time Source Procedure Growth Status 06/11/17 21:15 Blood Blood Culture - Preliminary NO GROWTH AFTER 48 HOURS Resulted 06/11/17 21:00 Blood Blood Culture - Preliminary NO GROWTH AFTER 48 HOURS Resulted Current Medications Medications (Trade) Dose Ordered Sig/Driss Route PRN Reason Start Time Stop Time Status Last Admin Dose Admin Acetaminophen (Tylenol) 650 mg Q4H PRN ORAL FEVER 06/11/17 20:15 07/11/17 20:14 Albuterol/ Ipratropium (DuoNeb 0.5-3(2.5)mg/3ml) 3 ml Q4H PRN HHN Shortness of Breath 06/11/17 20:15 06/16/17 20:14 06/12/17 21:19 Bupropion HCl (Wellbutrin XL) 150 mg DAILY ORAL 06/12/17 09:00 07/12/17 08:59 06/14/17 07:52 Dextrose (Dextrose 50%) STAT PRN IV Hypoglycemia 06/11/17 19:45 07/11/17 19:44 Heparin Sodium (Porcine) (Heparin 5000 units/ml) 5,000 units EVERY 12 HOURS SUBQ 06/11/17 21:00 07/11/17 20:59 06/14/17 07:57 Levofloxacin (Levaquin) 750 mg Q24H ORAL 06/11/17 21:00 06/18/17 20:59 06/13/17 20:27 Lorazepam (Ativan 2mg/ml 1ml) 2 mg Q2H PRN IV For Anxiety 06/11/17 18:15 06/18/17 18:14 06/14/17 16:44 Morphine Sulfate (Morphine Sulfate) 4 mg Q4H PRN IVP Severe Pain (Pain Scale 7-10) 06/11/17 20:15 06/18/17 20:14 06/14/17 15:40 Mupirocin 1 applic 1 applic THREE TIMES A DAY TOPIC 06/11/17 20:00 06/16/17 19:59 06/14/17 16:50 Ondansetron HCl (Zofran) 4 mg Q6H PRN IVP Nausea & Vomiting 06/11/17 20:15 07/11/17 20:14 Paroxetine HCl (Paxil) 10 mg BEDTIME ORAL 06/11/17 21:00 07/11/17 20:59 06/13/17 20:27 Polyethylene Glycol (Miralax) 17 gm DAILYPRN PRN ORAL Constipation 06/11/17 20:15 07/11/17 20:14 Promethazine HCl/ Codeine (Phenergan with Codeine) 5 ml Q4H PRN ORAL For Cough 06/11/17 20:15 07/11/17 20:14 Sodium Chloride (Sodium Chloride 1000ml bag) 1,000 ml @ 75 mls/hr [id number] IV 06/11/17 18:15 07/11/17 18:14 06/14/17 15:03 Vancomycin HCl/ Dextrose (Vancomycin 1.5gm/D5W 250ml) 250 ml @ 125 mls/hr Q8H IVPB 06/11/17 23:00 06/16/17 22:59 06/14/17 15:04 Vitamin A/Vitamin D (A & D Oint) 1 applic EVERY 12 HOURS TOPIC 06/13/17 09:00 07/13/17 08:59 06/14/17 07:52 Kendrick Gonzalez M.D. Jun 14, 2017 17:11
[2017-06-14] MEDS: DuoNeb 0.5-3(2.5)mg/3ml neb HHN PRN (20:32)
[2017-06-14] MEDS: PARoxetine 10mg tab ORAL SCH (20:35)
--- NOTE | 2017-06-14 22:15 | Progress Note ---
DATE: 06/14/2017 SUBJECTIVE: The patient is still depressed presents with anhedonia, worthlessness, hopelessness, decreased energy, and there are no behavioral issues. The patient is compliant. ____ which is slightly improved. MENTAL STATUS EXAMINATION: The patient is alert and oriented x4. Mood is dysphoric. Affect is constricted, congruent with mood. Thought process is concrete. Thought content, there is no suicidal or homicidal ideation. ASSESSMENT: 1. Major depressive disorder. 2. Anxiety disorder. PLAN: 1. The patient will be continued on current medication. 2. Provide the patient with supportive therapy and reality orientation. Tari Ryan M.D. DR: ESTEFANI JOB#: [id number] CC:
[2017-06-15 04:00] VITALS: BP 131/74
[2017-06-15] MEDS: Vancomycin 1.5gm/D5W 250ml 250 ML IVPB SCH ×2 (06:09→15:40)
[2017-06-15 08:00] VITALS: BP 136/84
[2017-06-15] MEDS: Morphine Sulfate 4mg/ml Inj IVP PRN ×2 (08:53→17:45)
[2017-06-15] MEDS: BuPROPion XL 150mg tab ORAL SCH (08:54)
[2017-06-15] MEDS: Vitamin A&D Oint 2oz Tube TOPIC SCH (08:54)
[2017-06-15] MEDS: Heparin 5000 units/ml inj SUBQ SCH (09:03)
[2017-06-15] MEDS: LORazepam Inj 2mg/ml 1ml IV PRN ×2 (11:34→16:46)
[2017-06-15 12:00] VITALS: BP 139/84
[2017-06-15 16:00] VITALS: BP 133/84
[2017-06-15] MEDS ORDERED: DOXYCYCLINE MO100 MG ORAL (16:19)
[2017-06-15] MEDS ORDERED: BACTROBAN 2% OI15 GM TOPIC (16:20)
--- NOTE | 2017-06-15 16:26 | Pulmonology Progress Note ---
Assessment/Plan Problems: (1) Pneumonia (2) Hypoxia (3) Tachycardia (4) Homelessness Assessment/Plan improving dc home wtih oral antibiotics Subjective ROS Limited/Unobtainable: No Constitutional: Reports: no symptoms HEENT: Repors: no symptoms Respiratory: Reports: no symptoms Allergies: Coded Allergies: No Known Allergies (Unverified , 06/10/17) Objective Last 24 Hour Vital Signs Date Time Temp Pulse Resp B/P Pulse Ox O2 Delivery O2 Flow Rate FiO2 06/15/17 12:00 98.1 79 20 139/84 96 Room Air 06/15/17 09:23 97.7 06/15/17 08:00 97.7 89 20 136/84 95 Room Air 06/15/17 04:00 97.7 91 18 131/74 96 Room Air 06/14/17 23:51 97.9 83 18 135/81 97 Room Air 06/14/17 20:38 97 22 98 Room Air 21 06/14/17 20:28 87 20 98 Room Air 21 06/14/17 19:58 98.1 89 20 126/78 98 Room Air Intake and Output 06/14/17 06/15/17 19:00 07:00 Intake Total 1275 ml 1050 ml Output Total 450 ml 1100 ml Balance 825 ml -50 ml Intake Oral 200 ml IV Total 1075 ml 1050 ml Output Urine Total 450 ml 1100 ml # Bowel Movements 1 General Appearance: WD/WN HEENT: normocephalic, atraumatic Cardiovascular: normal peripheral pulses, normal rate Abdomen: normal bowel sounds, no organomegaly Genitourinary: normal external genitalia Extremities: no clubbing Skin: no rash Laboratory Tests 06/15/17 14:10: Vancomycin Level Trough 16.6H Current Medications Medications (Trade) Dose Ordered Sig/Driss Route PRN Reason Start Time Stop Time Status Last Admin Dose Admin Acetaminophen (Tylenol) 650 mg Q4H PRN ORAL FEVER 06/11/17 20:15 07/11/17 20:14 Albuterol/ Ipratropium (DuoNeb 0.5-3(2.5)mg/3ml) 3 ml Q4H PRN HHN Shortness of Breath 06/11/17 20:15 06/16/17 20:14 06/14/17 20:32 Bupropion HCl (Wellbutrin XL) 150 mg DAILY ORAL 06/12/17 09:00 07/12/17 08:59 06/15/17 08:54 Dextrose (Dextrose 50%) STAT PRN IV Hypoglycemia 06/11/17 19:45 07/11/17 19:44 Heparin Sodium (Porcine) (Heparin 5000 units/ml) 5,000 units EVERY 12 HOURS SUBQ 06/11/17 21:00 07/11/17 20:59 06/15/17 09:03 Levofloxacin (Levaquin) 750 mg Q24H ORAL 06/11/17 21:00 06/18/17 20:59 06/14/17 20:36 Lorazepam (Ativan 2mg/ml 1ml) 2 mg Q2H PRN IV For Anxiety 06/11/17 18:15 06/18/17 18:14 06/15/17 11:34 Morphine Sulfate (Morphine Sulfate) 4 mg Q4H PRN IVP Severe Pain (Pain Scale 7-10) 06/11/17 20:15 06/18/17 20:14 06/15/17 08:53 Mupirocin 1 applic 1 applic THREE TIMES A DAY TOPIC 06/11/17 20:00 06/16/17 19:59 06/15/17 13:13 Ondansetron HCl (Zofran) 4 mg Q6H PRN IVP Nausea & Vomiting 06/11/17 20:15 07/11/17 20:14 Paroxetine HCl (Paxil) 10 mg BEDTIME ORAL 06/11/17 21:00 07/11/17 20:59 06/14/17 20:35 Polyethylene Glycol (Miralax) 17 gm DAILYPRN PRN ORAL Constipation 06/11/17 20:15 07/11/17 20:14 Promethazine HCl/ Codeine (Phenergan with Codeine) 5 ml Q4H PRN ORAL For Cough 06/11/17 20:15 07/11/17 20:14 Sodium Chloride (Sodium Chloride 1000ml bag) 1,000 ml @ 75 mls/hr [id number] IV 06/11/17 18:15 07/11/17 18:14 06/15/17 11:35 Vancomycin HCl/ Dextrose (Vancomycin 1.5gm/D5W 250ml) 250 ml @ 125 mls/hr Q8H IVPB 06/11/17 23:00 06/16/17 22:59 06/15/17 15:40 Vitamin A/Vitamin D (A & D Oint) 1 applic EVERY 12 HOURS TOPIC 06/13/17 09:00 07/13/17 08:59 06/15/17 08:54 KWASI IBARRA Jun 15, 2017 16:26
--- NOTE | 2017-06-15 16:27 | Infectious Diseases Prog Note ---
Assessment/Plan Assessment/Plan ASSESSMENT: 41 y/o homeless male with: 1) LLL pneumonia--homeless, living in car with mother, but no TB exposure risk. acute presentation. responding to levofloxacin, completed D#5/5 therapy today. improved pulm exam on bronchodilators treatments. 2) leukocytosis--resolved 3) R arm thrombophlebitis, stable, on IV vancomycin D#5, blood cx from 06/11 ngtd 4) R forearm cephalic vein thrombus (on u/s) without any DVT. secondary to #3 above. 5) BLE venous stasis 6) BLE eschars, small, w/o surrounding cellulitis, on mupirocin and wound care. superificial cx grew MSSA. nares negative for MRSA colonization. recent IVDU--viral hepatitis panel and HIV rapid test negative MDD--started on wellbutrin and paxil by psych PLAN: --Completed levofloxacin 750mg PO q24hr d#5 of 5 today (06/12/17) s/p cefepime d#1 Baseline QTC wnl 425ms --completed IV vancomycin d#5/5 for RUE thrombophlebitis secondary to infiltrated IV. still with some residual focal pain and erythema w/o systemic s /sx. U/S negative for DVT. --given persistence of erythema despite neg blood cx, continue warm compresses as outpatient and doxycycline 100mg PO q12hr x7 days. prescription written. dispo --R arm warm compresses --Continue mupirocin topical to lesions on ble legs three times daily for 14 days. prescription written. --rest/elevation BLE stable for discharge from ID standpoint. Subjective Constitutional: Reports: no symptoms Musculoskeletal: Reports: pain, swelling Allergies: Coded Allergies: No Known Allergies (Unverified , 06/10/17) Objective Vital Signs Last 24 Hour Vital Signs Date Time Temp Pulse Resp B/P Pulse Ox O2 Delivery O2 Flow Rate FiO2 06/15/17 12:00 98.1 79 20 139/84 96 Room Air 06/15/17 09:23 97.7 06/15/17 08:00 97.7 89 20 136/84 95 Room Air 06/15/17 04:00 97.7 91 18 131/74 96 Room Air 06/14/17 23:51 97.9 83 18 135/81 97 Room Air 06/14/17 20:38 97 22 98 Room Air 21 06/14/17 20:28 87 20 98 Room Air 21 06/14/17 19:58 98.1 89 20 126/78 98 Room Air Height (Feet): 6 Height (Inches): 1.00 Weight (Pounds): 295 Objective VITAL SIGNS: GEN: awake, alert, non toxic appearing HEENT: Mild pale conjunctiva. oral mucosa dry, phaynx w/o exudate or effusion. No icterus. Head normocephalic, neck supple. NECK: No cervical LAD CHEST: Clear to auscultation bilaterally except faint crackles L base HEART: S1 and S2, no murmurs, no rubs. ABDOMEN: soft, non tender, non distended, normoactive bowel sounds. EXTREMITIES: No cyanosis, no clubbing, trace BLE edema. no erythema to BLE, but multiple eschars in different stages of healing. no fluctuance. no warmth. nvi. R forearm medially with palpable painful cord with worsened erythema. no fluctuance NEUROLOGIC: Awake, alert, no focal neurologic motor deficits. : deferred LYMPH: no LAD RECTAL: deferred Laboratory Tests Test 06/15/17 14:10 Vancomycin Level Trough 16.6 ug/mL (5.0-12.0) H Current Medications Medications (Trade) Dose Ordered Sig/Driss Route PRN Reason Start Time Stop Time Status Last Admin Dose Admin Acetaminophen (Tylenol) 650 mg Q4H PRN ORAL FEVER 06/11/17 20:15 07/11/17 20:14 Albuterol/ Ipratropium (DuoNeb 0.5-3(2.5)mg/3ml) 3 ml Q4H PRN HHN Shortness of Breath 06/11/17 20:15 06/16/17 20:14 06/14/17 20:32 Bupropion HCl (Wellbutrin XL) 150 mg DAILY ORAL 06/12/17 09:00 07/12/17 08:59 06/15/17 08:54 Dextrose (Dextrose 50%) STAT PRN IV Hypoglycemia 06/11/17 19:45 07/11/17 19:44 Heparin Sodium (Porcine) (Heparin 5000 units/ml) 5,000 units EVERY 12 HOURS SUBQ 06/11/17 21:00 07/11/17 20:59 06/15/17 09:03 Levofloxacin (Levaquin) 750 mg Q24H ORAL 06/11/17 21:00 06/18/17 20:59 06/14/17 20:36 Lorazepam (Ativan 2mg/ml 1ml) 2 mg Q2H PRN IV For Anxiety 06/11/17 18:15 06/18/17 18:14 06/15/17 11:34 Morphine Sulfate (Morphine Sulfate) 4 mg Q4H PRN IVP Severe Pain (Pain Scale 7-10) 06/11/17 20:15 06/18/17 20:14 06/15/17 08:53 Mupirocin 1 applic 1 applic THREE TIMES A DAY TOPIC 06/11/17 20:00 06/16/17 19:59 06/15/17 13:13 Ondansetron HCl (Zofran) 4 mg Q6H PRN IVP Nausea & Vomiting 06/11/17 20:15 07/11/17 20:14 Paroxetine HCl (Paxil) 10 mg BEDTIME ORAL 06/11/17 21:00 07/11/17 20:59 06/14/17 20:35 Polyethylene Glycol (Miralax) 17 gm DAILYPRN PRN ORAL Constipation 06/11/17 20:15 07/11/17 20:14 Promethazine HCl/ Codeine (Phenergan with Codeine) 5 ml Q4H PRN ORAL For Cough 06/11/17 20:15 07/11/17 20:14 Sodium Chloride (Sodium Chloride 1000ml bag) 1,000 ml @ 75 mls/hr [id number] IV 06/11/17 18:15 07/11/17 18:14 06/15/17 11:35 Vancomycin HCl/ Dextrose (Vancomycin 1.5gm/D5W 250ml) 250 ml @ 125 mls/hr Q8H IVPB 06/11/17 23:00 06/16/17 22:59 06/15/17 15:40 Vitamin A/Vitamin D (A & D Oint) 1 applic EVERY 12 HOURS TOPIC 06/13/17 09:00 07/13/17 08:59 06/15/17 08:54 Kendrick Gonzalez M.D. Jun 15, 2017 16:27
[2017-06-15] MEDS: PARoxetine 10mg tab ORAL SCH (20:16)
--- NOTE | 2017-06-15 22:30 | Progress Note ---
DATE: 06/15/2017 SUBJECTIVE: The patient is doing well. He still complains of depressed mood, anhedonia, worthlessness, and hopelessness. Overall, his current medical condition is improving. He is compliant with medication. Anxiety decreased. MENTAL STATUS EXAMINATION: The patient is alert and oriented x3. His mood is neutral. Affect is constricted, congruent with mood. Thought process is concrete. Thought content, there is no suicidal or homicidal ideation. ASSESSMENT: Depression. PLAN: 1. The patient will be continued on current medication. 2. Provide the patient with supportive therapy and reality orientation. We will continue to follow and readjust the medications. Tari Ryan M.D. DR: Nupur JOB#: [id number] CC:
--- NOTE | 2017-06-16 11:41 | Diagnostic Imaging Report ---
APPROVED REPORT CPT Code: 95193 Present Symptoms Comments: Swelling RIGHT UPPER EXTREMITY: Imaging reveals patency of the internal jugular, subclavian, axillary and brachial veins. The Doppler indicates normal spontaneous flow within these venous segments. SUPERFICIAL VENOUS SYSTEM: Imaging reveals acute thrombus in the right cephalic vein at forearm level. Imaging also reveals patency of the right cephalic upper arm and basilic veins.
--- NOTE | 2017-06-16 12:03 | Discharge Summary ---
Discharge Summary Hospital Course Date of Admission Jun 10, 2017 at 17:36 Date of Discharge Jun 15, 2017 at 20:00 Admitting Diagnosis pneumonia HPI Ubaldo Baltazar is a 41 year old male who was admitted on Jun 10, 2017 at 17: 36 for Pneumonia Hospital Course dc summary #[id number] Discharge Medications New Medications: Doxycycline Monohydrate* (Doxycycline Monohydrate*) 100 Mg Capsule 100 MG ORAL Q12H for 7 Days, #14 CAP 0 Refills Mupirocin (Mupirocin) 22 Gm Oint...g. 1 APPLIC TOPIC THREE TIMES A DAY, #22 GM Discharge Condition Upon Discharge: stable Discharge Disposition Patient was discharged to Home (01) Discharge Diagnoses: Adonis ([place])Domenica NP Jun 16, 2017 12:03
--- NOTE | 2017-06-16 19:08 | Cardiology Report ---
APPROVED REPORT EKG Measurement Heart [id number] ME [id number] Sinus tachycardia Possible Left atrial enlargement Borderline ECG
--- NOTE | 2017-06-17 00:15 | Discharge Summary 2 SIG ---
DATE OF ADMISSION: 06/10/2017 DATE OF DISCHARGE: 06/15/2017 REASON FOR ADMISSION: The patient is a 41-year-old homeless male, who lives in the car with his mother presented to emergency department complaining of acute left-sided chest pain worse with deep inspiration. The patient noted to have a fever when he was triaged. The patient reported he was recently treated for cellulitis of lower extremity without significant improvement. The patient was tachycardic, stable pulse oximetry on the room air, low-grade fever. Leukocytosis of 13.1, stable hemoglobin and hematocrit. Stable renal parameters. Troponin negative. LFT and CK all within normal limits. ProBNP 15. Urinalysis no evidence of urinary tract infection and the patient also had a chest x-ray in the emergency department which revealed possible left base consolidation. Subsequently the patient undergone CTA of the chest due to the tachycardia, it revealed no evidence of pulmonary emboli but shows left basal pneumonia. The patient admitted for further management. The patient also noted to have on clinical examination to have left arm thrombophlebitis and bilateral lower extremities venous stasis. The patient admitted for further management. ADMITTING DIAGNOSES: Include: 1. Left lower lobe pneumonia. 2. Leukocytosis. 3. Left arm thrombophlebitis. 4. Bilateral lower extremity venous stasis. 5. Bilateral lower extremity eschars without surrounding cellulitis. HOSPITAL COURSE: The patient admitted initially on telemetry floor due to tachycardia and then transferred to med/surg floor. Telemetry shows sinus tachycardia initially but with treatment normalization of the temperature, heart rate is down to normal, sinus rhythm on monitor. The patient transferred to Med/Surg floor. Mother was in the room. Leukocytosis resolved with empiric antibiotics. Blood culture negative. Wound culture revealed Staphylococcus aureus. The patient undergone venous duplex bilateral upper extremity which revealed acute thrombus in the right cephalic vein on the level consistent with right lower extremity thrombophlebitis, no evidence of acute DVT. Wound care nurse follow patient for wound care due to the bilateral lower extremity venous stasis. Psychiatric evaluation was requested secondary to major depressive disorder. Secondary to depression, the patient was diagnosed with major depressive disorder and started on Wellbutrin and Prozac. The patient completed 5 days of Levaquin and vancomycin for five days for right upper extremity thrombophlebitis secondary to . There is still some residual focal pain and erythema but without systemic signs and symptoms. Given persistence of erythema despite negative blood culture, ID recommended to continue warm compresses as outpatient. He also recommended doxycycline 100 mg p.o. q.12 hours for 7-day prescription provided. The patient was treated with the new mupirocin topical to lesion on the bilateral lower extremity three times a day. Continue for another 14 day prescription provided. Recommended bedrest while in the bed, elevate bilateral lower extremities. The patient has a history of recent intravenous drug use. Vital hepatitis panel and HIV rapid test were both negative. The patient was stable for discharge. DISCHARGE DIAGNOSES: Include: 1. Left lower lobe pneumonia. 2. Leukocytosis, resolved. 3. Right arm thrombophlebitis, stable. 4. Right forearm cephalic vein thrombosis without evidence of acute deep venous thrombosis . 5. Bilateral lower extremity venous stasis. 6. Bilateral lower extremity eschar without evidence of surrounding cellulitis. 7. Electrolytes abnormality (hypokalemia hypomagnesemia) 8. Tachycardia. Of note elected electrolytes were replaced and stable after replacement. Tachycardia was likely due to fever resolved when the fever resolved. DISCHARGE MEDICATIONS: See medication reconciliation list. Prescription provided for doxycycline and mupirocin ointment. DISCHARGE INSTRUCTIONS: The patient discharged with his mother, the patient is homeless. Raymond Dominguez M.D. I have been assigned to dictate discharge summary on this account and I was not involved in the patient's management. Domenica méndezgiovanna NMarta DR: John JOB#: [id number] CC:
== END 2017-06-15 20:00 | disposition home or self-care (01) | DRG 139 ==
LOC: EMR 16:14 → 2E 17:36 → EDBEDREQ 18:09 → 4E 06-11 17:54
DX: J18.9 Pneumonia, unspecified organism (principal); I80.8 Phlebitis and thrombophlebitis of other sites; L03.115 Cellulitis of right lower limb; L03.116 Cellulitis of left lower limb; E83.42 Hypomagnesemia; R09.02 Hypoxemia; F32.9 Major depressive disorder, single episode, unspecified; Z59.0 Homelessness; I87.8 Other specified disorders of veins; I82.611 Acute embolism and thrombosis of superficial veins of right upper extremity; E87.6 Hypokalemia; R00.0 Tachycardia, unspecified
CPT/HCPCS: 36415; 71010; 71275; 80048; 80053; 80069; 80202; 81003; 82164; 82550; 82553; 83690; 83735; 83880; 84484; 85025; 85610; 85730; 86703; 86705; 86709; 86803; 87040; 87070; 87081; 87181; 87205; 87340; 92610; 93005; 93971; 94640; 94664; 94760; J7620; J8499